=== PATIENT | female | born 1975 | race Caucasian/White ===

== ENCOUNTER 2022-02-17 08:19 | Outpatient (REF) | payer OTHER, SELFPAY ==
--- NOTE | ~2022-02-17 | MM_ITS ---
EXAMINATION: MM SCREENING DIGITAL BREAST TOMOSYNTHESIS, BILATERAL CLINICAL INFORMATION: Screening. Asymptomatic. The lifetime risk of breast cancer based on the Tyrer-Cuzick Model is 12%. COMPARISON: Mammography: 12/18/2019, 05/12/2018, 11/09/2017 TECHNIQUE: Digital breast tomosynthesis is performed in both the craniocaudal and mediolateral oblique views along with computer-aided detection (CAD). Synthesized 2D images are generated from the tomosynthesis. FINDINGS: There are scattered areas of fibroglandular density (ACR BI-RADS breast composition Category b). Breast tissue composition borders on predominantly fatty. There are no significant masses, abnormal calcifications, or other abnormalities. There is no developing density or architectural abnormality. The axilla and skin contours are unremarkable. There are no significant changes. MM/MM tomosynthesis screening BI IMPRESSION: No mammographic evidence of malignancy. ASSESSMENT: BI-RADS 1: Negative RECOMMENDATION: Routine annual mammography screening. This patient's information was entered into a reminder system with a target due date for their next mammogram.
== END 2022-02-17 08:20 | disposition home or self-care (01) ==
LOC: HO.MAMMO 08:19
PROVIDERS: PCP Internal Medicine; Visit Provider Internal Medicine
DX: Z12.31 Encounter for screening mammogram for malignant neoplasm of breast (principal)
CPT/HCPCS: 77063; 77067

== ENCOUNTER 2022-08-13 10:53 | Outpatient (REF) | payer OTHER, SELFPAY ==
--- NOTE | ~2022-08-13 | XR_ITS ---
EXAMINATION: XR CHEST CLINICAL INFORMATION: Cough COMPARISON: None TECHNIQUE: 2 views of the chest were obtained. FINDINGS: No significant abnormality is noted involving the heart, lungs, mediastinum, bony thorax or soft tissues. XR/XR chest 2V IMPRESSION: Unremarkable examination.
[2022-08-13 15:59] LABS: Influenza A PCR NEGATIVE (Negative); Influenza B PCR NEGATIVE (Negative); Resp Syncy Virus RNA Qual PCR NEGATIVE (Negative); SARS COV2 PCR INHOUSE NEGATIVE (Negative)
== END 2022-08-13 10:54 | disposition home or self-care (01) ==
LOC: HO.HMGCX 10:53
PROVIDERS: Visit Provider Physician Assistant Medical
DX: Z20.822 Contact with and (suspected) exposure to COVID-19 (principal); R05.9 Cough, unspecified
CPT/HCPCS: 0241U; 71046

== ENCOUNTER 2023-02-24 08:11 | Outpatient (REF) | payer OTHER, SELFPAY ==
--- NOTE | ~2023-02-24 | MM_ITS ---
EXAMINATION: MM SCREENING DIGITAL BREAST TOMOSYNTHESIS, BILATERAL CLINICAL INFORMATION: Screening. Asymptomatic. The lifetime risk of breast cancer based on the Tyrer-Cuzick Model is 13%. COMPARISON: Mammography: 02/17/2022, 12/18/2019, 05/12/2018, 11/09/2017, 10/23/2017 TECHNIQUE: Digital breast tomosynthesis is performed in both the craniocaudal and mediolateral oblique views along with computer-aided detection (CAD). Synthesized 2D images are generated from the tomosynthesis. FINDINGS: There are scattered areas of fibroglandular density (ACR BI-RADS breast composition Category b). There are no significant masses, abnormal calcifications, or other abnormalities. Parenchymal pattern is similar to prior studies. There is no developing density or architectural abnormality. The axilla and skin contours are unremarkable. No significant changes. MM/MM tomosynthesis screening BI IMPRESSION: No mammographic evidence of malignancy. ASSESSMENT: BI-RADS 1: Negative RECOMMENDATION: Routine annual mammography screening. This patient's information was entered into a reminder system with a target due date for their next mammogram.
== END 2023-02-24 08:12 | disposition home or self-care (01) ==
LOC: HO.MAMMO 08:11
PROVIDERS: PCP Internal Medicine; Visit Provider Internal Medicine
DX: Z12.31 Encounter for screening mammogram for malignant neoplasm of breast (principal)
CPT/HCPCS: 77063; 77067

== ENCOUNTER 2024-02-28 08:09 | Outpatient (REF) | payer OTHER, SELFPAY | END 2024-02-28 08:10 | disposition home or self-care (01) | LOC: HO.MAMMO 08:09 | PROVIDERS: PCP Internal Medicine; Visit Provider Internal Medicine | DX: Z12.31 Encounter for screening mammogram for malignant neoplasm of breast (principal) | CPT/HCPCS: 77063; 77067 ==

== ENCOUNTER → 2024-02-28 08:15 | Outpatient (BNV) | payer OTHER, SELFPAY | PROVIDERS: PCP Internal Medicine; Visit Provider Radiology Diagnostic Radiology | DX: Z12.31 Encounter for screening mammogram for malignant neoplasm of breast (principal) | CPT/HCPCS: 77063; 77067 ==

== ENCOUNTER 2025-03-05 08:06 | Outpatient (REF) | payer OTHER, SELFPAY ==
--- OUTSIDE RECORDS SUMMARY | 2025-03-05 08:28 | XMS_ITS | Patient Health Record ---
Author Organization [facility] Address [address] [place] [address] Care Team Providers Care Nurse Coordinator Name Role Phone Winter Christie Unavailable [phone] Allergies Allergen (clinical drug ingredient) Drug/Non Drug Allergy documented on EMR Reaction Allergy Type Onset Date Status Penicillin stomach upset Drug Allergy Ac tive Reason For Referral No Information Medications Medication SIG (Take, Route, Frequency, Duration) Notes Start Date End Date Status Omeprazole 20 MG 1 capsule 30 minutes before morning meal Orally Once a day for 30 day(s) Active Gabapentin Not-Takin g Hydroxychloroquine Sulfate Not-Taking Mounjaro 5 MG/0.5ML as directed Subcutaneous Active LamISIL 250 MG 1 tablet Orally Once a day for 30 days Active Social History Tobacco Use: Social History Observation Description Date Details (start date - stop date) Current Smoker NA - NA Tobacco Use/Smoking Question Answer Notes Are you a: current smoker Alcohol Screen Question Answer Notes Did you have a drink contain ing alcohol in the past year? Yes How often did you have a dri nk containing alcohol in the past year? 2 to 3 times a week (3 points) Points 3 Interpretation Positive Tobacco use other than smoking: Question Answer Notes Are you an other tobacco user? No Plan Of Treatment Pending Test Test Name Order Date *Liver Function Test (LFT) 07/22/2022 *Liver Function Test (LFT) 09/23/2022 Insurance Providers Payer Name Payer Address Payer Phone Subscriber Number Group Number Insured Name Patient Relationship to Insured Coverage Start Date Coverage End Date [facility] [address] [place], [place] [id number] [place] [address] [id number] Yenny John Self - patient is the insured Medical (General) History Medical History History ICD Code Arthritis covid-19 Fibromyalgia Reflux ( GERD) Chicken pox Surgical History Surgery Date(Month/Year) x2 08/2003,09/1998 kidney surgery- Stent 02/2019
--- OUTSIDE RECORDS SUMMARY | 2025-03-05 08:28 | XMS_ITS | Patient Health Record ---
Author Organization [facility] Address [address] [place] [id number] Care Team Providers Care Electrician Maintenance Name Role Phone AARTI LEE Unavailable [phone] ALLERGIES Allergen (clinical drug ingredient) Drug/Non Drug Allergy documented on EMR Reaction Allergy Type Onset Date Status Penicillin stomach upset Drug Allergy Ac tive RESULTS Component Value Reference Range Notes URINALYSIS Reviewed date:08/07/2024 04:42:45 PM Interpretation: Performing Lab: Notes/Report: Note Original Ordering Provider: AARTI LEE NP [employer], a member of [address] [address] Parish Nurse - Brigitte Concepcion MD GLUCOSE, (UA) NEGATIVE NEGATIVE mg/dL BILIRUBIN, URINE NEGATIVE NEGATIVE KETONE, URINE NEGATIVE NEGATIVE mg/dL SPECIFIC GRAVITY, URINE 1.013 1.003-1.030 BLOOD, URINE NEGATIVE NEGATIVE PH, URINE 7.5 5.0-8.0 PROTEIN, URINE NEGATIVE <= TRACE mg/dl UROBILINOGEN, URINE 1.0 0.2-1.0 E.U./dL NITRITE, URINE NEGATIVE NEGATIVE LEUKOCYTE ESTERASE, URINE NEGATIVE NEGATIVE Note Original Ordering Provider: AARTI LEE NP [employer], a member of [address] [address] Parish Nurse - Brigitte Concepcion MD GLYCOHEMOGLOBIN PROFILE Reviewed date:08/08/2024 07:46:23 AM Interpretation: Performing Lab: Notes/Report: GLYCATED HEMOGLOBIN A1C 4.9 <6.5 % ESTIMATED AVERAGE GLUCOSE 94 COMPREHENSIVE METABOLIC PANE L Reviewed date:08/07/2024 04:42:45 PM Interpretation: Performing Lab: Notes/Report: Note Original Orderi ng Provider: AARTI LEE NP GLUCOSE 103 70-100 mg/dL Reference range applicable to fasting specimens only BUN 14 5-25 mg/dL CREAT 0.96 0.5-1.1 mg/dL GLOMERULAR FILTRATION RATE 72 >60 This eGFR result was calculated using the CKD-EPI 2020 Creatinine Equation SODIUM 142 135-145 mEq/L POTASSIUM 3.9 3.5-5.5 mmol/L CHLORIDE 109 96-110 mmol/L CO2 30 21-32 mmol/L ANION GAP 3 3-11 CALCIUM 9.6 8.5-10.5 mg/dL TOTAL PROTEIN 6.5 6.0-8.0 G/dL ALBUMIN 3.9 3.2-5.0 G/dL BILI,TOTAL 0.5 0.0-1.4 mg/dL SGOT 15 10-42 U/L SGPT 23 10-60 U/L ALK PHOS 80 42-121 U/L CBC WITH AUTO DIFF Reviewed date:08/07/2024 03:04:21 PM Interpretation: Performing Lab: Notes/Report: WBC 6.5 4.8-10.8 x10-3/uL RBC 4.2 3.8-4.8 x10-6/uL HEMOGLOBIN 13.0 11.5-16.0 g/dL HEMATOCRIT 39.4 35-47 % MCV 93.6 79-98 fL MCH 30.9 27-32 pg MCHC 33.0 32-37 g/dL RDW 12.2 11-15 % PLT COUNT 250 130-400 x10-3/uL MEAN PLATELET VOLUME 10.5 7-11 fL NRBC % AUTO 0.0 <1 % NEUT % 57.6 LYMPH % 31.8 MONO % 5.5 EOS % 4.0 BASO % 0.8 IMMATURE GRANULOCYTES % 0.3 NRBC # AUTO 0.00 <0.1 x10-3/uL ABSOLUTE NEUT 3.75 1.5-7.0 x10-3/uL LYMPH # 2.07 1-5.0 x10-3/uL MONO # 0.36 0.2-1.0 x10-3/uL EOS # 0.26 0-0.5 x10-3/uL BASO # 0.05 0-0.2 x10-3/uL IMMATURE GRANULOCYTES # 0.02 0-0.03 x10-3/uL LIPID PROFILE Reviewed date:08/07/2024 04:42:45 PM Interpretation: Performing Lab: Notes/Report: CHOLESTEROL 145 0-200 mg/dL TRIGLYCERIDES 136 0-150 mg/dL VITAMIN D, 25-HYDROXY Reviewed date:08/07/2024 04:42:45 PM Interpretation: Performing Lab: Notes/Report: VITAMIN D, 25-HYDROXY 33 30-80 ng/mL TSH Reviewed date:08/07/2024 04:42:45 PM Interpretation: Performing Lab: Notes/Report: TSH 0.92 0.40-4.00 uIU/ml REASON FOR REFERRAL No Information MEDICATIONS Medication SIG (Take, Route, Frequency, Duration) Notes Start Date End Date Status Omeprazole 20 MG 1 capsule 30 minutes before morning meal Orally Once a day Active Hydroxychloroquine Sulfate 100 MG as directed Orally Active Humira Active Mounjaro 10 MG/0.5ML 10mg Subcutaneous weekly for 30 days Active Mounjaro 12.5 MG/0.5ML 12.5mg Subcutaneous weekly for 30 days every other week Not-Taking Zepbound 2.5 MG/0.5ML inject 2.5mg Subcutaneous weekly for 30 days 11/29/2024 Not-Taking CeleBREX 200 MG 1 capsule with food Orally Once a day Not-Taking Ondansetron 4 MG 1 tablet on the tongue and allow to dissolve prn nausea/vomiting Orally twice day for 30 days Active zepbound 10mg inject 10mg Subcutaneous weekly for 30 days 01/17/2025 Active Zepbound 10 MG/0.5ML 10mg Subcutaneous weekly for 30 days 02/15/2024 Not-Taking SOCIAL HISTORY Tobacco Use: Social History Observation Description Date Details (start date - stop date) Current Smoker NA - NA Sex Assigned At : Social History Observation Description Sex Assigned At Unknown Tobacco Use/Smoking Question Answer Notes Are you a current smoker Alcohol Screen (Audit-C) Question Answer Notes Did you have a drink contain ing alcohol in the past year? Yes How often did you have a dri nk containing alcohol in the past year? 2 to 3 times a week (3 points) Points 3 Interpretation Positive Section Notes: started smoing at the age of 15-16 about 1 pckt a day and quit in 2011 started smoking again 2020 smoking about 1 pck a day started smoing at the age of 15-16 about 1 pckt a day and quit in 2011 started smoking again 2020 smoking about 1 pck a day started smoing at the age of 15-16 about 1 pckt a day and quit in 2011 started smoking again 2020 smoking about 1 pck a day started smoing at the age of 15-16 about 1 pckt a day and quit in 2011 started smoking again 2020 smoking about 1 pck a day started smoing at the age of 15-16 about 1 pckt a day and quit in 2011 started smoking again 2020 smoking about 1 pck a day started smoing at the age of 15-16 about 1 pckt a day and quit in 2011 started smoking again 2020 smoking about 1 pck a day started smoing at the age of 15-16 about 1 pckt a day and quit in 2011 started smoking again 2020 smoking about 1 pck a day started smoing at the age of 15-16 about 1 pckt a day and quit in 2011 started smoking again 2020 smoking about 1 pck a day started smoing at the age of 15-16 about 1 pckt a day and quit in 2011 started smoking again 2020 smoking about 1 pck a day started smoing at the age of 15-16 about 1 pckt a day and quit in 2011 started smoking again 2020 smoking about 1 pck a day started smoing at the age of 15-16 about 1 pckt a day and quit in 2011 started smoking again 2020 smoking about 1 pck a day started smoing at the age of 15-16 about 1 pckt a day and quit in 2011 started smoking again 2020 smoking about 1 pck a day started smoing at the age of 15-16 about 1 pckt a day and quit in 2011 started smoking again 2020 smoking about 1 pck a day started smoing at the age of 15-16 about 1 pckt a day and quit in 2011 started smoking again 2020 smoking about 1 pck a day started smoing at the age of 15-16 about 1 pckt a day and quit in 2011 started smoking again 2020 smoking about 1 pck a day started smoing at the age of 15-16 about 1 pckt a day and quit in 2011 started smoking again 2020 smoking about 1 pck a day started smoing at the age of 15-16 about 1 pckt a day and quit in 2011 started smoking again 2020 smoking about 1 pck a day started smoing at the age of 15-16 about 1 pckt a day and quit in 2011 started smoking again 2020 smoking about 1 pck a day PROBLEMS Problem Type ICD Code Onset Dates Problem Status W/U Status Risk SNOMED Code Notes Problem Vitamin D deficiency, unspecified (E55.9) Active confirmed 01783041 Problem Other obesity due to excess calories (E66.09) Active confirmed 540106439 Problem Encounter for general adult medical examination without abnormal findings (Z00.00) Active confirmed 925179742 Problem Encounter for screening for diabetes mellitus (Z13.1) Active confirmed 429206167 Problem Encounter for screening for lipoid disorders (Z13.220) Active confirmed 151599382 Problem Encounter for screening for other suspected endocrine disorder (Z13.29) Active confirmed 551249820 Problem Prediabetes (R73.03) Active confirmed Prediabetes (990261077) Problem Hypothyroidism, unspecified type (E03.9) Active confirmed Hypothyroidism (98707195) Problem Body mass index [BMI] 36.0-36.9, adult (Z68.36) Active confirmed 755495590 Problem BMI 33.0-33.9,adult (Z68.33) Active confirmed 716343740 Problem Hyperinsulinemia (E16.1) Active confirmed 46991614 Problem BMI 31.0-31.9,adult (Z68.31) Active confirmed 780998488 Problem BMI 30.0-30.9,adult (Z68.30) Active confirmed 046150781 Problem Rheumatoid arthritis with positive rheumatoid factor, involving unspecified site (M05.9) Active confirmed 959662802 VITAL SIGNS Heart Rate 98 /min 01/17/2025 Blood pressure diastolic 76 mm Hg 01/17/2025 Oximetry 99 % 01/17/2025 Height 65 in 01/17/2025 Blood pressure systolic 108 mm Hg 01/17/2025 Weight 133 lbs 01/17/2025 BMI 22.13 kg/m2 01/17/2025 Encounters Encounter Location Date Provider Diagnosis [facility] [address] [facility] [address] [place] [address] 03/30/2024 AARTI LEE Rheumatoid arthritis with positive rheumatoid factor, involving unspecified site M05.9 ; Prediabetes R73.03 ; Hyperinsulinemia E16.1 and BMI 22.0-22.9, adult Z68.22 [place] [address] 05/22/2024 AARTI LEE Rheumatoid arthritis with positive rheumatoid factor, involving unspecified site M05.9 ; Prediabetes R73.03 ; Hyperinsulinemia E16.1 and BMI 22.0-22.9, adult Z68.22 [place] [address] 08/07/2024 AATRI SHULTZHOT Rheumatoid arthritis with positive rheumatoid factor, involving unspecified site M05.9 ; Prediabetes R73.03 ; Hyperinsulinemia E16.1 and BMI 22.0-22.9, adult Z68.22 [place] [address] 10/03/2024 AARTI BABCOCKT Rheumatoid arthritis with positive rheumatoid factor, involving unspecified site M05.9 ; Prediabetes R73.03 ; Hyperinsulinemia E16.1 and BMI 22.0-22.9, adult Z68.22 [place] [address] 11/29/2024 AARTI LEE Rheumatoid arthritis with positive rheumatoid factor, involving unspecified site M05.9 ; Prediabetes R73.03 ; Hyperinsulinemia E16.1 and BMI 21.0-21.9, adult Z68.21 [place] [address] 01/17/2025 AARTI LEE Rheumatoid arthritis with positive rheumatoid factor, involving unspecified site M05.9 ; BMI 22.0-22.9, adult Z68.22 ; Prediabetes R73.03 and Hyperinsulinemia E16.1 [facility] [address] [place] [id number] 01/17/2025 AARTI LEE ASSESSMENTS Encounter Date Diagnosis Assessment Notes Treatment Notes Treatment Clinical Notes Section Notes 03/30/2024 Rheumatoid arthritis with positive rheumatoid factor, involving unspecified site (ICD-10 - M05.9) #Weight Management 03/30/2024 _update labs WIll continue 10-mg mounjaro- discussed maintanence dosing Every other week For now We will try for zbound, Patient is amendable to paying [id number] given the benefits of the drug Tolerating overall well. SECA scale reviewed prior, skeletal muscle mass within normal limits. discussed importance of protein consumption for muscle maintenance, strength and resistance training as well as probiotics, B12 complex biotin , iron and other nutrients, To also help avoid telogen effluvium while on weight loss medications such as GLP-1 Follow up in 6 weeks. Total time spent today was 30 minutes of which greater than 50% was spent on coordinating and counseling Patient has been found to be normal with a BMI of (22). We are a board certified obesity and weight management practice Patient has trialed behavioral modification, dietary restrictions and exercise for a minimum of 6 months The most recent [place] [employer] of clinical endocrinologists and [employer]in[employer] guidelines recommend patients who have overweight BMI or obesity BMI, who also have metabolic syndrome, prediabetes, or at risk of developing type 2 diabetes should aim for a weight loss goal of at least 10% of the baseline body weight Patient counseled regarding effects of GLP/GIP-1 agonists, and other FDA approved wgt loss meds with regards to a multifactorial approach of weight loss as mentioned above and not solely appetite suppression. We have discussed the mechanism of GLP-1's/GIP, dual incretins, appetitite suppressants I think this would be fantastic option for her given her metabolic workup and body composition We have discussed the risks and benefits and side effects including/and not limited to Sarcopenia, intestinal obstruction, constipation, nausea, lethargy, headache Discussed importance of protein consumption for muscle maintenance as well as strength and resistance training ,probiotics, B12 complex biotin , iron and other nutrients, To help avoid telogen effluvium We have discussed the lifelong requirement of nutritional supplementation And adherence to an exercise regimen as well as importance of follow-up The patient understands and agrees There is no history of medullary thyroid cancer or multiple endocrine neoplasia There is also no history of cardiovascular disease, hypertension, palpitations, or arrhythmias In the setting of potential stimulant/amphetam ine use such as phentermine We have also discussed risks and benefits, and the use of compounded medications to help offset the national shortages as well as financial implications vs trade name drugs Patient was reassured and welcomed to the practice. We discussed that we stress a hollistic medical approach with emphasis on lifestyle modification. Patient was informed that a healthy lifestyle with exercise and good eating habits can help reduce his risk of medical complications. He is explained that obesity increases his risk of diabetes, cardiovascular disease, or organ damage. We spent a lot of time discussing the relationship between food, exercise, sleep, mental health and obesity. Patient was counseled on the importance EATING local, organic food when possible. Patient was educated on clean 15 and dirty dozen. I provided information about reading books called The Food Rules by Chip Wang and Eat Fat Get Lean by Dr Stan Conner. Self education is important in the journey for weight management. Patient was offered diagnostic testing. We want to measure visceral adiposity, advanced body composition, adverse lipids, fatty acid balance, risk for heart disease and atherosclerosis, markers of inflammation and genetic susceptibility. Patient was counseled on weight management and was advised to lose weight using A. Meal Replacement Products We discussed the lifelong requirement of nutritional supplementation and adherence to an exercise regimen as well as importance of dietary follow-up Patient was educated on the replacement products called optifast. This is a good way of taking fixed amount of calories. It has been shown in studies to be ineffective weight management tool. We also recommend maintaining adequate protein intake and muscle composition, 1.5mg/kg This however has to be coupled with lifestyle intervention as well as laboratory data and EKG monitoring. It is impossible to know how a person will tolerate complete meal replacement. The side effects of meal replacement and weight loss could include syncopal attacks, dizziness, gallstones, potential cholecystectomy, possible heart attack and even . The benefits of meal replacement would be potential weight loss but no guarantees can be made. Meal replacement products are not covered by insurance. Once the patient has bought these products we cannot return them B. Lifestyle management which includes several strategies as below 1. Eat a low carbohydrate good fat good protein diet. Eliminate refined carbohydrates from the diet. Continue blood sugar and sugared beverages. Eat local organic when possible. Cook your own meals. Read food labels. None about healthy snacks. Portion control and food with low glycemic index 2. Exercise regularly. Try to get at least 6000 steps a day. Use a predominant to track activity level. Consider using apps like [employer], myfitnesspal, lose it, stick as needed for self-monitoring and weight management. Consider group exercises. Consider hiring a personal driver. Regular exercise is cespedes to sustainable health and prevents as a buffer against weight regain 3. Sleep is most important for healing. Tried to sleep at least 8 hours a night. A good quality sleep needs a sleep ritual with ideal room temperature of around 68. It might help to take a shower and have no electronics in the room and sleep in a very dark room without artificial light. Start her sleep routine and get up early in the morning and go to bed on time 4. Make a social connection. Surround yourself with positive people with positive energy. Connect with friends and family. 5. Get into the habit of meditating and mindfulness while doing everything. 6. Go outside and connect with nature. C. Prescription medications Patient was educated on the use of prescription medications for medical weight loss. This is a growing list and includes phentermine, Topamax,Qsymia, contrave, belviq and saxenda. All prescription medications could have side effects including but not limited to kidney stones, seizure disorder cardiac arrhythmias heart attack pancreatitis etc. etc.. Patient was encouraged to read the prescription insert and have coaching with their pharmacist and make an informed decision about taking medication and know that these medications are being prescribed with good intentions and we do not know how a patient would react to her medication. Sudden medications are FDA approved for weight loss and there is also off label use depending on patient's inability to afford medications in an attempt to lose weight D. Behavioral counseling was done to establish a relationship between food and an mood. Patient was provided information about local counseling and psychiatry and Dr Skelton at [facility]. We would like to cover regular topics and build on low glycemic eating exercise mindful eating, using yoga and meditation along with deep breathing and connecting with friends and family. E. MASS PAT reviewed, Patient's current medications were reviewed and opinion was given on medication that can cause weight gain and can be substituted F. Patient was assessed for risk with obesity including and not limiting to atherosclerosis heart disease stroke kidney disease, restrictive lung disease, irritable bowel syndrome and overall mortality. Risk of developing prediabetes diabetes and metabolic syndrome was discussed G. Therapeutic plan: We have decided to make therapeutic plan which would include choosing wisely on calories restricting portion getting active, tracking weight, getting good quality sleep and working on time management H. Patient will follow up in (4) weeks for weight management Of note, some information is being carried forward from prior records for informational purposes only and is being cited so that efficiency, safety and quality of the patient's care is not compromised This note was prepared using voice recognition software and direct typing Please excuse inadvertent power plant inspector or typing errors, or uncorrected word substitutions Although every attempt has been made by the provider to proofread this document, occasional misspellings and typographical errors may still be present Due to the previous pandemic, and the use of personal protective equipment (PPE) This may decrease voice recognition accuracy Inadvertent power plant inspector errors may occur 05/22/2024 Rheumatoid arthritis with positive rheumatoid factor, involving unspecified site (ICD-10 - M05.9) #Weight Management 05/22/2024 _update labs WIll continue 10-mg mounjaro- discussed maintanence dosing Every other week For now We will try for zbound, Patient is amendable to paying [id number] given the benefits of the drug Tolerating overall well. SECA scale reviewed prior, skeletal muscle mass within normal limits. discussed importance of protein consumption for muscle maintenance, strength and resistance training as well as probiotics, B12 complex biotin , iron and other nutrients, To also help avoid telogen effluvium while on weight loss medications such as GLP-1 Follow up in 6 weeks. Total time spent today was 30 minutes of which greater than 50% was spent on coordinating and counseling Patient has been found to be normal with a BMI of (22). We are a board certified obesity and weight management practice Patient has trialed behavioral modification, dietary restrictions and exercise for a minimum of 6 months The most recent [place] [employer] of clinical endocrinologists and [employer] endocrin[employer] guidelines recommend patients who have overweight BMI or obesity BMI, who also have metabolic syndrome, prediabetes, or at risk of developing type 2 diabetes should aim for a weight loss goal of at least 10% of the baseline body weight Patient counseled regarding effects of GLP/GIP-1 agonists, and other FDA approved wgt loss meds with regards to a multifactorial approach of weight loss as mentioned above and not solely appetite suppression. We have discussed the mechanism of GLP-1's/GIP, dual incretins, appetitite suppressants I think this would be fantastic option for her given her metabolic workup and body composition We have discussed the risks and benefits and side effects including/and not limited to Sarcopenia, intestinal obstruction, constipation, nausea, lethargy, headache Discussed importance of protein consumption for muscle maintenance as well as strength and resistance training ,probiotics, B12 complex biotin , iron and other nutrients, To help avoid telogen effluvium We have discussed the lifelong requirement of nutritional supplementation And adherence to an exercise regimen as well as importance of follow-up The patient understands and agrees There is no history of medullary thyroid cancer or multiple endocrine neoplasia There is also no history of cardiovascular disease, hypertension, palpitations, or arrhythmias In the setting of potential stimulant/amphetam ine use such as phentermine We have also discussed risks and benefits, and the use of compounded medications to help offset the national shortages as well as financial implications vs trade name drugs Patient was reassured and welcomed to the practice. We discussed that we stress a hollistic medical approach with emphasis on lifestyle modification. Patient was informed that a healthy lifestyle with exercise and good eating habits can help reduce his risk of medical complications. He is explained that obesity increases his risk of diabetes, cardiovascular disease, or organ damage. We spent a lot of time discussing the relationship between food, exercise, sleep, mental health and obesity. Patient was counseled on the importance EATING local, organic food when possible. Patient was educated on clean 15 and dirty dozen. I provided information about reading books called The Food Rules by Chip Wang and Eat Fat Get Lean by Dr Stan Conner. Self education is important in the journey for weight management. Patient was offered diagnostic testing. We want to measure visceral adiposity, advanced body composition, adverse lipids, fatty acid balance, risk for heart disease and atherosclerosis, markers of inflammation and genetic susceptibility. Patient was counseled on weight management and was advised to lose weight using A. Meal Replacement Products We discussed the lifelong requirement of nutritional supplementation and adherence to an exercise regimen as well as importance of dietary follow-up Patient was educated on the replacement products called optifast. This is a good way of taking fixed amount of calories. It has been shown in studies to be ineffective weight management tool. We also recommend maintaining adequate protein intake and muscle composition, 1.5mg/kg This however has to be coupled with lifestyle intervention as well as laboratory data and EKG monitoring. It is impossible to know how a person will tolerate complete meal replacement. The side effects of meal replacement and weight loss could include syncopal attacks, dizziness, gallstones, potential cholecystectomy, possible heart attack and even . The benefits of meal replacement would be potential weight loss but no guarantees can be made. Meal replacement products are not covered by insurance. Once the patient has bought these products we cannot return them B. Lifestyle management which includes several strategies as below 1. Eat a low carbohydrate good fat good protein diet. Eliminate refined carbohydrates from the diet. Continue blood sugar and sugared beverages. Eat local organic when possible. Cook your own meals. Read food labels. None about healthy snacks. Portion control and food with low glycemic index 2. Exercise regularly. Try to get at least 6000 steps a day. Use a predominant to track activity level. Consider using apps like [employer], Mobile [employer] the [employer], lose it, stick as needed for self-monitoring and weight management. Consider group exercises. Consider hiring a personal driver. Regular exercise is cespedes to sustainable health and prevents as a buffer against weight regain 3. Sleep is most important for healing. Tried to sleep at least 8 hours a night. A good quality sleep needs a sleep ritual with ideal room temperature of around 68. It might help to take a shower and have no electronics in the room and sleep in a very dark room without artificial light. Start her sleep routine and get up early in the morning and go to bed on time 4. Make a social connection. Surround yourself with positive people with positive energy. Connect with friends and family. 5. Get into the habit of meditating and mindfulness while doing everything. 6. Go outside and connect with nature. C. Prescription medications Patient was educated on the use of prescription medications for medical weight loss. This is a growing list and includes phentermine, Topamax,Qsymia, contrave, belviq and saxenda. All prescription medications could have side effects including but not limited to kidney stones, seizure disorder cardiac arrhythmias heart attack pancreatitis etc. etc.. Patient was encouraged to read the prescription insert and have coaching with their pharmacist and make an informed decision about taking medication and know that these medications are being prescribed with good intentions and we do not know how a patient would react to her medication. Sudden medications are FDA approved for weight loss and there is also off label use depending on patient's inability to afford medications in an attempt to lose weight D. Behavioral counseling was done to establish a relationship between food and an mood. Patient was provided information about local counseling and psychiatry and Dr Skelton at [facility]. We would like to cover regular topics and build on low glycemic eating exercise mindful eating, using yoga and meditation along with deep breathing and connecting with friends and family. E. MASS PAT reviewed, Patient's current medications were reviewed and opinion was given on medication that can cause weight gain and can be substituted F. Patient was assessed for risk with obesity including and not limiting to atherosclerosis heart disease stroke kidney disease, restrictive lung disease, irritable bowel syndrome and overall mortality. Risk of developing prediabetes diabetes and metabolic syndrome was discussed G. Therapeutic plan: We have decided to make therapeutic plan which would include choosing wisely on calories restricting portion getting active, tracking weight, getting good quality sleep and working on time management H. Patient will follow up in (4) weeks for weight management Of note, some information is being carried forward from prior records for informational purposes only and is being cited so that efficiency, safety and quality of the patient's care is not compromised This note was prepared using voice recognition software and direct typing Please excuse inadvertent power plant inspector or typing errors, or uncorrected word substitutions Although every attempt has been made by the provider to proofread this document, occasional misspellings and typographical errors may still be present Due to the previous pandemic, and the use of personal protective equipment (PPE) This may decrease voice recognition accuracy Inadvertent power plant inspector errors may occur 08/07/2024 Rheumatoid arthritis with positive rheumatoid factor, involving unspecified site (ICD-10 - M05.9) #Weight Management 08/07/2024 To get updated labs after today's visit Discussed body composition scale findings down fat mass and slightly up on muscle mass Low normal muscle mass discussed proper protein and strength and resistance training WIll continue 10-mg mounjaro- discussed maintanence dosing We will try for zbound, Patient is amendable to paying [id number] given the benefits of the drug Tolerating overall well. SECA scale reviewed prior, skeletal muscle mass within normal limits. discussed importance of protein consumption for muscle maintenance, strength and resistance training as well as probiotics, B12 complex biotin , iron and other nutrients, To also help avoid telogen effluvium while on weight loss medications such as GLP-1 Total time spent today was 30 minutes of which greater than 50% was spent on coordinating and counseling Patient has been found to be normal with a BMI of (22). We are a board certified obesity and weight management practice Patient has trialed behavioral modification, dietary restrictions and exercise for a minimum of 6 months The most recent [place] [employer] of clinical endocrinologists and [place] [employer]in[employer] guidelines recommend patients who have overweight BMI or obesity BMI, who also have metabolic syndrome, prediabetes, or at risk of developing type 2 diabetes should aim for a weight loss goal of at least 10% of the baseline body weight Patient counseled regarding effects of GLP/GIP-1 agonists, and other FDA approved wgt loss meds with regards to a multifactorial approach of weight loss as mentioned above and not solely appetite suppression. We have discussed the mechanism of GLP-1's/GIP, dual incretins, appetitite suppressants I think this would be fantastic option for her given her metabolic workup and body composition We have discussed the risks and benefits and side effects including/and not limited to Sarcopenia, intestinal obstruction, constipation, nausea, lethargy, headache Discussed importance of protein consumption for muscle maintenance as well as strength and resistance training ,probiotics, B12 complex biotin , iron and other nutrients, To help avoid telogen effluvium We have discussed the lifelong requirement of nutritional supplementation And adherence to an exercise regimen as well as importance of follow-up The patient understands and agrees There is no history of medullary thyroid cancer or multiple endocrine neoplasia There is also no history of cardiovascular disease, hypertension, palpitations, or arrhythmias In the setting of potential stimulant/amphetam ine use such as phentermine We have also discussed risks and benefits, and the use of compounded medications to help offset the national shortages as well as financial implications vs trade name drugs Patient was reassured and welcomed to the practice. We discussed that we stress a hollistic medical approach with emphasis on lifestyle modification. Patient was informed that a healthy lifestyle with exercise and good eating habits can help reduce his risk of medical complications. He is explained that obesity increases his risk of diabetes, cardiovascular disease, or organ damage. We spent a lot of time discussing the relationship between food, exercise, sleep, mental health and obesity. Patient was counseled on the importance EATING local, organic food when possible. Patient was educated on clean 15 and dirty dozen. I provided information about reading books called The Food Rules by Chip Wang and Eat Fat Get Lean by Dr Stan Conner. Self education is important in the journey for weight management. Patient was offered diagnostic testing. We want to measure visceral adiposity, advanced body composition, adverse lipids, fatty acid balance, risk for heart disease and atherosclerosis, markers of inflammation and genetic susceptibility. Patient was counseled on weight management and was advised to lose weight using A. Meal Replacement Products We discussed the lifelong requirement of nutritional supplementation and adherence to an exercise regimen as well as importance of dietary follow-up Patient was educated on the replacement products called optifast. This is a good way of taking fixed amount of calories. It has been shown in studies to be ineffective weight management tool. We also recommend maintaining adequate protein intake and muscle composition, 1.5mg/kg This however has to be coupled with lifestyle intervention as well as laboratory data and EKG monitoring. It is impossible to know how a person will tolerate complete meal replacement. The side effects of meal replacement and weight loss could include syncopal attacks, dizziness, gallstones, potential cholecystectomy, possible heart attack and even . The benefits of meal replacement would be potential weight loss but no guarantees can be made. Meal replacement products are not covered by insurance. Once the patient has bought these products we cannot return them B. Lifestyle management which includes several strategies as below 1. Eat a low carbohydrate good fat good protein diet. Eliminate refined carbohydrates from the diet. Continue blood sugar and sugared beverages. Eat local organic when possible. Cook your own meals. Read food labels. None about healthy snacks. Portion control and food with low glycemic index 2. Exercise regularly. Try to get at least 6000 steps a day. Use a predominant to track activity level. Consider using apps like [employer], [employer] the [employer], lose it, stick as needed for self-monitoring and weight management. Consider group exercises. Consider hiring a personal driver. Regular exercise is cespedes to sustainable health and prevents as a buffer against weight regain 3. Sleep is most important for healing. Tried to sleep at least 8 hours a night. A good quality sleep needs a sleep ritual with ideal room temperature of around 68. It might help to take a shower and have no electronics in the room and sleep in a very dark room without artificial light. Start her sleep routine and get up early in the morning and go to bed on time 4. Make a social connection. Surround yourself with positive people with positive energy. Connect with friends and family. 5. Get into the habit of meditating and mindfulness while doing everything. 6. Go outside and connect with nature. C. Prescription medications Patient was educated on the use of prescription medications for medical weight loss. This is a growing list and includes phentermine, Topamax,Qsymia, contrave, belviq and saxenda. All prescription medications could have side effects including but not limited to kidney stones, seizure disorder cardiac arrhythmias heart attack pancreatitis etc. etc.. Patient was encouraged to read the prescription insert and have coaching with their pharmacist and make an informed decision about taking medication and know that these medications are being prescribed with good intentions and we do not know how a patient would react to her medication. Sudden medications are FDA approved for weight loss and there is also off label use depending on patient's inability to afford medications in an attempt to lose weight D. Behavioral counseling was done to establish a relationship between food and an mood. Patient was provided information about local counseling and psychiatry and Dr Skelton at [facility]. We would like to cover regular topics and build on low glycemic eating exercise mindful eating, using yoga and meditation along with deep breathing and connecting with friends and family. E. MASS PAT reviewed, Patient's current medications were reviewed and opinion was given on medication that can cause weight gain and can be substituted F. Patient was assessed for risk with obesity including and not limiting to atherosclerosis heart disease stroke kidney disease, restrictive lung disease, irritable bowel syndrome and overall mortality. Risk of developing prediabetes diabetes and metabolic syndrome was discussed G. Therapeutic plan: We have decided to make therapeutic plan which would include choosing wisely on calories restricting portion getting active, tracking weight, getting good quality sleep and working on time management H. Patient will follow up in (4) weeks for weight management Of note, some information is being carried forward from prior records for informational purposes only and is being cited so that efficiency, safety and quality of the patient's care is not compromised This note was prepared using voice recognition software and direct typing Please excuse inadvertent power plant inspector or typing errors, or uncorrected word substitutions Although every attempt has been made by the provider to proofread this document, occasional misspellings and typographical errors may still be present Due to the previous pandemic, and the use of personal protective equipment (PPE) This may decrease voice recognition accuracy Inadvertent power plant inspector errors may occur 10/03/2024 Rheumatoid arthritis with positive rheumatoid factor, involving unspecified site (ICD-10 - M05.9) #Weight Management 10/03/2024 Labs reviewed Patient expresses interest in switching to us for primary care services Discussed body composition scale findings down fat mass and slightly up on muscle mass Low normal muscle mass discussed proper protein and strength and resistance training WIll continue 10-mg mounjaro- discussed maintanence dosing Every 2 weeks or so We will try for zbound, Patient is amendable to paying [id number] given the benefits of the drug Tolerating overall well. Total time spent today was 30 minutes of which greater than 50% was spent on coordinating and counseling Patient has been found to be normal with a BMI of (22). We are a board certified obesity and weight management practice Patient has trialed behavioral modification, dietary restrictions and exercise for a minimum of 6 months The most recent [place] [employer] of clinical endocrinologists and [place] [employer] end[employer]in[employer] guidelines recommend patients who have overweight BMI or obesity BMI, who also have metabolic syndrome, prediabetes, or at risk of developing type 2 diabetes should aim for a weight loss goal of at least 10% of the baseline body weight Patient counseled regarding effects of GLP/GIP-1 agonists, and other FDA approved wgt loss meds with regards to a multifactorial approach of weight loss as mentioned above and not solely appetite suppression. Of note, some information is being carried forward from prior records for informational purposes only and is being cited so that efficiency, safety and quality of the patient's care is not compromised This note was prepared using voice recognition software and direct typing Please excuse inadvertent power plant inspector or typing errors, or uncorrected word substitutions Although every attempt has been made by the provider to proofread this document, occasional misspellings and typographical errors may still be present Due to the previous pandemic, and the use of personal protective equipment (PPE) This may decrease voice recognition accuracy Inadvertent power plant inspector errors may occur 11/29/2024 Rheumatoid arthritis with positive rheumatoid factor, involving unspecified site (ICD-10 - M05.9) #Weight Management 11/29/2024 Labs reviewed Patient will be decreased to 2.5 mg dosing every 3 to 4 weeks for maintenance Discussed low normal muscle mass, proper protein and strength resistance training Proper caloric intake to avoid hypocalroia and muscle loss Total time spent today was 30 minutes of which greater than 50% was spent on coordinating and counseling Patient has been found to be normal with a BMI of (21). We are a board certified obesity and weight management practice Patient has trialed behavioral modification, dietary restrictions and exercise for a minimum of 6 months The most recent [place] [employer] of clinical endocrinologists and [employer] endocrin[employer] guidelines recommend patients who have overweight BMI or obesity BMI, who also have metabolic syndrome, prediabetes, or at risk of developing type 2 diabetes should aim for a weight loss goal of at least 10% of the baseline body weight Patient counseled regarding effects of GLP/GIP-1 agonists, and other FDA approved wgt loss meds with regards to a multifactorial approach of weight loss as mentioned above and not solely appetite suppression. Of note, some information is being carried forward from prior records for informational purposes only and is being cited so that efficiency, safety and quality of the patient's care is not compromised This note was prepared using voice recognition software and direct typing Please excuse inadvertent power plant inspector or typing errors, or uncorrected word substitutions Although every attempt has been made by the provider to proofread this document, occasional misspellings and typographical errors may still be present Due to the previous pandemic, and the use of personal protective equipment (PPE) This may decrease voice recognition accuracy Inadvertent power plant inspector errors may occur 01/17/2025 Rheumatoid arthritis with positive rheumatoid factor, involving unspecified site (ICD-10 - M05.9) #Weight Management 01/17/2025 Will send prescription to [facility] decr dosing every 3 to 4 weeks for maintenance Discussed low normal muscle mass, proper protein and strength resistance training Proper caloric intake to avoid hypocalroia and muscle loss Total time spent today was 30 minutes of which greater than 50% was spent on coordinating and counseling Patient has been found to be normal with a BMI of (22). We are a board certified obesity and weight management practice Of note, some information is being carried forward from prior records for informational purposes only and is being cited so that efficiency, safety and quality of the patient's care is not compromised This note was prepared using voice recognition software and direct typing Please excuse inadvertent power plant inspector or typing errors, or uncorrected word substitutions Although every attempt has been made by the provider to proofread this document, occasional misspellings and typographical errors may still be present Due to the previous pandemic, and the use of personal protective equipment (PPE) This may decrease voice recognition accuracy Inadvertent power plant inspector errors may occur 01/17/2025 BMI 22.0-22.9, adult (ICD-10 - Z68.22) #Weight Management 01/17/2025 Will send prescription to [facility] direct decr dosing every 3 to 4 weeks for maintenance Discussed low normal muscle mass, proper protein and strength resistance training Proper caloric intake to avoid hypocalroia and muscle loss Total time spent today was 30 minutes of which greater than 50% was spent on coordinating and counseling Patient has been found to be normal with a BMI of (22). We are a board certified obesity and weight management practice Of note, some information is being carried forward from prior records for informational purposes only and is being cited so that efficiency, safety and quality of the patient's care is not compromised This note was prepared using voice recognition software and direct typing Please excuse inadvertent power plant inspector or typing errors, or uncorrected word substitutions Although every attempt has been made by the provider to proofread this document, occasional misspellings and typographical errors may still be present Due to the previous pandemic, and the use of personal protective equipment (PPE) This may decrease voice recognition accuracy Inadvertent power plant inspector errors may occur 11/29/2024 Prediabetes (ICD-10 - R73.03) #Weight Management 11/29/2024 Labs reviewed Patient will be decreased to 2.5 mg dosing every 3 to 4 weeks for maintenance Discussed low normal muscle mass, proper protein and strength resistance training Proper caloric intake to avoid hypocalroia and muscle loss Total time spent today was 30 minutes of which greater than 50% was spent on coordinating and counseling Patient has been found to be normal with a BMI of (21). We are a board certified obesity and weight management practice Patient has trialed behavioral modification, dietary restrictions and exercise for a minimum of 6 months The most recent [place] [employer] of clinical endocrinologists and [place] [employer] end[employer]in[employer] guidelines recommend patients who have overweight BMI or obesity BMI, who also have metabolic syndrome, prediabetes, or at risk of developing type 2 diabetes should aim for a weight loss goal of at least 10% of the baseline body weight Patient counseled regarding effects of GLP/GIP-1 agonists, and other FDA approved wgt loss meds with regards to a multifactorial approach of weight loss as mentioned above and not solely appetite suppression. Of note, some information is being carried forward from prior records for informational purposes only and is being cited so that efficiency, safety and quality of the patient's care is not compromised This note was prepared using voice recognition software and direct typing Please excuse inadvertent power plant inspector or typing errors, or uncorrected word substitutions Although every attempt has been made by the provider to proofread this document, occasional misspellings and typographical errors may still be present Due to the previous pandemic, and the use of personal protective equipment (PPE) This may decrease voice recognition accuracy Inadvertent power plant inspector errors may occur 10/03/2024 Prediabetes (ICD-10 - R73.03) #Weight Management 10/03/2024 Labs reviewed Patient expresses interest in switching to us for primary care services Discussed body composition scale findings down fat mass and slightly up on muscle mass Low normal muscle mass discussed proper protein and strength and resistance training WIll continue 10-mg mounjaro- discussed maintanence dosing Every 2 weeks or so We will try for zbound, Patient is amendable to paying [id number] given the benefits of the drug Tolerating overall well. Total time spent today was 30 minutes of which greater than 50% was spent on coordinating and counseling Patient has been found to be normal with a BMI of (22). We are a board certified obesity and weight management practice Patient has trialed behavioral modification, dietary restrictions and exercise for a minimum of 6 months The most recent [place] [employer] of clinical endocrinologists and [place] [employer]in[employer] guidelines recommend patients who have overweight BMI or obesity BMI, who also have metabolic syndrome, prediabetes, or at risk of developing type 2 diabetes should aim for a weight loss goal of at least 10% of the baseline body weight Patient counseled regarding effects of GLP/GIP-1 agonists, and other FDA approved wgt loss meds with regards to a multifactorial approach of weight loss as mentioned above and not solely appetite suppression. Of note, some information is being carried forward from prior records for informational purposes only and is being cited so that efficiency, safety and quality of the patient's care is not compromised This note was prepared using voice recognition software and direct typing Please excuse inadvertent power plant inspector or typing errors, or uncorrected word substitutions Although every attempt has been made by the provider to proofread this document, occasional misspellings and typographical errors may still be present Due to the previous pandemic, and the use of personal protective equipment (PPE) This may decrease voice recognition accuracy Inadvertent power plant inspector errors may occur 08/07/2024 Prediabetes (ICD-10 - R73.03) #Weight Management 08/07/2024 To get updated labs after today's visit Discussed body composition scale findings down fat mass and slightly up on muscle mass Low normal muscle mass discussed proper protein and strength and resistance training WIll continue 10-mg mounjaro- discussed maintanence dosing We will try for zbound, Patient is amendable to paying [id number] given the benefits of the drug Tolerating overall well. SECA scale reviewed prior, skeletal muscle mass within normal limits. discussed importance of protein consumption for muscle maintenance, strength and resistance training as well as probiotics, B12 complex biotin , iron and other nutrients, To also help avoid telogen effluvium while on weight loss medications such as GLP-1 Total time spent today was 30 minutes of which greater than 50% was spent on coordinating and counseling Patient has been found to be normal with a BMI of (22). We are a board certified obesity and weight management practice Patient has trialed behavioral modification, dietary restrictions and exercise for a minimum of 6 months The most recent [place] [employer]ocrin[employer] and [employer] guidelines recommend patients who have overweight BMI or obesity BMI, who also have metabolic syndrome, prediabetes, or at risk of developing type 2 diabetes should aim for a weight loss goal of at least 10% of the baseline body weight Patient counseled regarding effects of GLP/GIP-1 agonists, and other FDA approved wgt loss meds with regards to a multifactorial approach of weight loss as mentioned above and not solely appetite suppression. We have discussed the mechanism of GLP-1's/GIP, dual incretins, appetitite suppressants I think this would be fantastic option for her given her metabolic workup and body composition We have discussed the risks and benefits and side effects including/and not limited to Sarcopenia, intestinal obstruction, constipation, nausea, lethargy, headache Discussed importance of protein consumption for muscle maintenance as well as strength and resistance training ,probiotics, B12 complex biotin , iron and other nutrients, To help avoid telogen effluvium We have discussed the lifelong requirement of nutritional supplementation And adherence to an exercise regimen as well as importance of follow-up The patient understands and agrees There is no history of medullary thyroid cancer or multiple endocrine neoplasia There is also no history of cardiovascular disease, hypertension, palpitations, or arrhythmias In the setting of potential stimulant/amphetam ine use such as phentermine We have also discussed risks and benefits, and the use of compounded medications to help offset the national shortages as well as financial implications vs trade name drugs Patient was reassured and welcomed to the practice. We discussed that we stress a hollistic medical approach with emphasis on lifestyle modification. Patient was informed that a healthy lifestyle with exercise and good eating habits can help reduce his risk of medical complications. He is explained that obesity increases his risk of diabetes, cardiovascular disease, or organ damage. We spent a lot of time discussing the relationship between food, exercise, sleep, mental health and obesity. Patient was counseled on the importance EATING local, organic food when possible. Patient was educated on clean 15 and dirty dozen. I provided information about reading books called The Food Rules by Chip Wang and Eat Fat Get Lean by Dr Stan Conner. Self education is important in the journey for weight management. Patient was offered diagnostic testing. We want to measure visceral adiposity, advanced body composition, adverse lipids, fatty acid balance, risk for heart disease and atherosclerosis, markers of inflammation and genetic susceptibility. Patient was counseled on weight management and was advised to lose weight using A. Meal Replacement Products We discussed the lifelong requirement of nutritional supplementation and adherence to an exercise regimen as well as importance of dietary follow-up Patient was educated on the replacement products called optifast. This is a good way of taking fixed amount of calories. It has been shown in studies to be ineffective weight management tool. We also recommend maintaining adequate protein intake and muscle composition, 1.5mg/kg This however has to be coupled with lifestyle intervention as well as laboratory data and EKG monitoring. It is impossible to know how a person will tolerate complete meal replacement. The side effects of meal replacement and weight loss could include syncopal attacks, dizziness, gallstones, potential cholecystectomy, possible heart attack and even . The benefits of meal replacement would be potential weight loss but no guarantees can be made. Meal replacement products are not covered by insurance. Once the patient has bought these products we cannot return them B. Lifestyle management which includes several strategies as below 1. Eat a low carbohydrate good fat good protein diet. Eliminate refined carbohydrates from the diet. Continue blood sugar and sugared beverages. Eat local organic when possible. Cook your own meals. Read food labels. None about healthy snacks. Portion control and food with low glycemic index 2. Exercise regularly. Try to get at least 6000 steps a day. Use a predominant to track activity level. Consider using apps like [employer], myfitnesspal, lose it, stick as needed for self-monitoring and weight management. Consider group exercises. Consider hiring a personal driver. Regular exercise is cespedes to sustainable health and prevents as a buffer against weight regain 3. Sleep is most important for healing. Tried to sleep at least 8 hours a night. A good quality sleep needs a sleep ritual with ideal room temperature of around 68. It might help to take a shower and have no electronics in the room and sleep in a very dark room without artificial light. Start her sleep routine and get up early in the morning and go to bed on time 4. Make a social connection. Surround yourself with positive people with positive energy. Connect with friends and family. 5. Get into the habit of meditating and mindfulness while doing everything. 6. Go outside and connect with nature. C. Prescription medications Patient was educated on the use of prescription medications for medical weight loss. This is a growing list and includes phentermine, Topamax,Qsymia, contrave, belviq and saxenda. All prescription medications could have side effects including but not limited to kidney stones, seizure disorder cardiac arrhythmias heart attack pancreatitis etc. etc.. Patient was encouraged to read the prescription insert and have coaching with their pharmacist and make an informed decision about taking medication and know that these medications are being prescribed with good intentions and we do not know how a patient would react to her medication. Sudden medications are FDA approved for weight loss and there is also off label use depending on patient's inability to afford medications in an attempt to lose weight D. Behavioral counseling was done to establish a relationship between food and an mood. Patient was provided information about local counseling and psychiatry and Dr Skelton at [facility]. We would like to cover regular topics and build on low glycemic eating exercise mindful eating, using yoga and meditation along with deep breathing and connecting with friends and family. E. MASS PAT reviewed, Patient's current medications were reviewed and opinion was given on medication that can cause weight gain and can be substituted F. Patient was assessed for risk with obesity including and not limiting to atherosclerosis heart disease stroke kidney disease, restrictive lung disease, irritable bowel syndrome and overall mortality. Risk of developing prediabetes diabetes and metabolic syndrome was discussed G. Therapeutic plan: We have decided to make therapeutic plan which would include choosing wisely on calories restricting portion getting active, tracking weight, getting good quality sleep and working on time management H. Patient will follow up in (4) weeks for weight management Of note, some information is being carried forward from prior records for informational purposes only and is being cited so that efficiency, safety and quality of the patient's care is not compromised This note was prepared using voice recognition software and direct typing Please excuse inadvertent power plant inspector or typing errors, or uncorrected word substitutions Although every attempt has been made by the provider to proofread this document, occasional misspellings and typographical errors may still be present Due to the previous pandemic, and the use of personal protective equipment (PPE) This may decrease voice recognition accuracy Inadvertent power plant inspector errors may occur 05/22/2024 Prediabetes (ICD-10 - R73.03) #Weight Management 05/22/2024 _update labs WIll continue 10-mg mounjaro- discussed maintanence dosing Every other week For now We will try for zbound, Patient is amendable to paying [id number] given the benefits of the drug Tolerating overall well. SECA scale reviewed prior, skeletal muscle mass within normal limits. discussed importance of protein consumption for muscle maintenance, strength and resistance training as well as probiotics, B12 complex biotin , iron and other nutrients, To also help avoid telogen effluvium while on weight loss medications such as GLP-1 Follow up in 6 weeks. Total time spent today was 30 minutes of which greater than 50% was spent on coordinating and counseling Patient has been found to be normal with a BMI of (22). We are a board certified obesity and weight management practice Patient has trialed behavioral modification, dietary restrictions and exercise for a minimum of 6 months The most recent [place] [employer]ocrinologists and [place] [employer] guidelines recommend patients who have overweight BMI or obesity BMI, who also have metabolic syndrome, prediabetes, or at risk of developing type 2 diabetes should aim for a weight loss goal of at least 10% of the baseline body weight Patient counseled regarding effects of GLP/GIP-1 agonists, and other FDA approved wgt loss meds with regards to a multifactorial approach of weight loss as mentioned above and not solely appetite suppression. We have discussed the mechanism of GLP-1's/GIP, dual incretins, appetitite suppressants I think this would be fantastic option for her given her metabolic workup and body composition We have discussed the risks and benefits and side effects including/and not limited to Sarcopenia, intestinal obstruction, constipation, nausea, lethargy, headache Discussed importance of protein consumption for muscle maintenance as well as strength and resistance training ,probiotics, B12 complex biotin , iron and other nutrients, To help avoid telogen effluvium We have discussed the lifelong requirement of nutritional supplementation And adherence to an exercise regimen as well as importance of follow-up The patient understands and agrees There is no history of medullary thyroid cancer or multiple endocrine neoplasia There is also no history of cardiovascular disease, hypertension, palpitations, or arrhythmias In the setting of potential stimulant/amphetam ine use such as phentermine We have also discussed risks and benefits, and the use of compounded medications to help offset the national shortages as well as financial implications vs trade name drugs Patient was reassured and welcomed to the practice. We discussed that we stress a hollistic medical approach with emphasis on lifestyle modification. Patient was informed that a healthy lifestyle with exercise and good eating habits can help reduce his risk of medical complications. He is explained that obesity increases his risk of diabetes, cardiovascular disease, or organ damage. We spent a lot of time discussing the relationship between food, exercise, sleep, mental health and obesity. Patient was counseled on the importance EATING local, organic food when possible. Patient was educated on clean 15 and dirty dozen. I provided information about reading books called The Food Rules by Chip Wang and Eat Fat Get Lean by Dr Stan Conner. Self education is important in the journey for weight management. Patient was offered diagnostic testing. We want to measure visceral adiposity, advanced body composition, adverse lipids, fatty acid balance, risk for heart disease and atherosclerosis, markers of inflammation and genetic susceptibility. Patient was counseled on weight management and was advised to lose weight using A. Meal Replacement Products We discussed the lifelong requirement of nutritional supplementation and adherence to an exercise regimen as well as importance of dietary follow-up Patient was educated on the replacement products called optifast. This is a good way of taking fixed amount of calories. It has been shown in studies to be ineffective weight management tool. We also recommend maintaining adequate protein intake and muscle composition, 1.5mg/kg This however has to be coupled with lifestyle intervention as well as laboratory data and EKG monitoring. It is impossible to know how a person will tolerate complete meal replacement. The side effects of meal replacement and weight loss could include syncopal attacks, dizziness, gallstones, potential cholecystectomy, possible heart attack and even . The benefits of meal replacement would be potential weight loss but no guarantees can be made. Meal replacement products are not covered by insurance. Once the patient has bought these products we cannot return them B. Lifestyle management which includes several strategies as below 1. Eat a low carbohydrate good fat good protein diet. Eliminate refined carbohydrates from the diet. Continue blood sugar and sugared beverages. Eat local organic when possible. Cook your own meals. Read food labels. None about healthy snacks. Portion control and food with low glycemic index 2. Exercise regularly. Try to get at least 6000 steps a day. Use a predominant to track activity level. Consider using apps like [employer], Ivaluapal, lose it, stick as needed for self-monitoring and weight management. Consider group exercises. Consider hiring a personal driver. Regular exercise is cespedes to sustainable health and prevents as a buffer against weight regain 3. Sleep is most important for healing. Tried to sleep at least 8 hours a night. A good quality sleep needs a sleep ritual with ideal room temperature of around 68. It might help to take a shower and have no electronics in the room and sleep in a very dark room without artificial light. Start her sleep routine and get up early in the morning and go to bed on time 4. Make a social connection. Surround yourself with positive people with positive energy. Connect with friends and family. 5. Get into the habit of meditating and mindfulness while doing everything. 6. Go outside and connect with nature. C. Prescription medications Patient was educated on the use of prescription medications for medical weight loss. This is a growing list and includes phentermine, Topamax,Qsymia, contrave, belviq and saxenda. All prescription medications could have side effects including but not limited to kidney stones, seizure disorder cardiac arrhythmias heart attack pancreatitis etc. etc.. Patient was encouraged to read the prescription insert and have coaching with their pharmacist and make an informed decision about taking medication and know that these medications are being prescribed with good intentions and we do not know how a patient would react to her medication. Sudden medications are FDA approved for weight loss and there is also off label use depending on patient's inability to afford medications in an attempt to lose weight D. Behavioral counseling was done to establish a relationship between food and an mood. Patient was provided information about local counseling and psychiatry and Dr Skelton at [facility]. We would like to cover regular topics and build on low glycemic eating exercise mindful eating, using yoga and meditation along with deep breathing and connecting with friends and family. E. MASS PAT reviewed, Patient's current medications were reviewed and opinion was given on medication that can cause weight gain and can be substituted F. Patient was assessed for risk with obesity including and not limiting to atherosclerosis heart disease stroke kidney disease, restrictive lung disease, irritable bowel syndrome and overall mortality. Risk of developing prediabetes diabetes and metabolic syndrome was discussed G. Therapeutic plan: We have decided to make therapeutic plan which would include choosing wisely on calories restricting portion getting active, tracking weight, getting good quality sleep and working on time management H. Patient will follow up in (4) weeks for weight management Of note, some information is being carried forward from prior records for informational purposes only and is being cited so that efficiency, safety and quality of the patient's care is not compromised This note was prepared using voice recognition software and direct typing Please excuse inadvertent power plant inspector or typing errors, or uncorrected word substitutions Although every attempt has been made by the provider to proofread this document, occasional misspellings and typographical errors may still be present Due to the previous pandemic, and the use of personal protective equipment (PPE) This may decrease voice recognition accuracy Inadvertent power plant inspector errors may occur 03/30/2024 Prediabetes (ICD-10 - R73.03) #Weight Management 03/30/2024 _update labs WIll continue 10-mg mounjaro- discussed maintanence dosing Every other week For now We will try for zbound, Patient is amendable to paying [id number] given the benefits of the drug Tolerating overall well. SECA scale reviewed prior, skeletal muscle mass within normal limits. discussed importance of protein consumption for muscle maintenance, strength and resistance training as well as probiotics, B12 complex biotin , iron and other nutrients, To also help avoid telogen effluvium while on weight loss medications such as GLP-1 Follow up in 6 weeks. Total time spent today was 30 minutes of which greater than 50% was spent on coordinating and counseling Patient has been found to be normal with a BMI of (22). We are a board certified obesity and weight management practice Patient has trialed behavioral modification, dietary restrictions and exercise for a minimum of 6 months The most recent [place] [employer] endocrinologists and [place] [employer] guidelines recommend patients who have overweight BMI or obesity BMI, who also have metabolic syndrome, prediabetes, or at risk of developing type 2 diabetes should aim for a weight loss goal of at least 10% of the baseline body weight Patient counseled regarding effects of GLP/GIP-1 agonists, and other FDA approved wgt loss meds with regards to a multifactorial approach of weight loss as mentioned above and not solely appetite suppression. We have discussed the mechanism of GLP-1's/GIP, dual incretins, appetitite suppressants I think this would be fantastic option for her given her metabolic workup and body composition We have discussed the risks and benefits and side effects including/and not limited to Sarcopenia, intestinal obstruction, constipation, nausea, lethargy, headache Discussed importance of protein consumption for muscle maintenance as well as strength and resistance training ,probiotics, B12 complex biotin , iron and other nutrients, To help avoid telogen effluvium We have discussed the lifelong requirement of nutritional supplementation And adherence to an exercise regimen as well as importance of follow-up The patient understands and agrees There is no history of medullary thyroid cancer or multiple endocrine neoplasia There is also no history of cardiovascular disease, hypertension, palpitations, or arrhythmias In the setting of potential stimulant/amphetam ine use such as phentermine We have also discussed risks and benefits, and the use of compounded medications to help offset the national shortages as well as financial implications vs trade name drugs Patient was reassured and welcomed to the practice. We discussed that we stress a hollistic medical approach with emphasis on lifestyle modification. Patient was informed that a healthy lifestyle with exercise and good eating habits can help reduce his risk of medical complications. He is explained that obesity increases his risk of diabetes, cardiovascular disease, or organ damage. We spent a lot of time discussing the relationship between food, exercise, sleep, mental health and obesity. Patient was counseled on the importance EATING local, organic food when possible. Patient was educated on clean 15 and dirty dozen. I provided information about reading books called The Food Rules by Chip Wang and Eat Fat Get Lean by Dr Stan Conner. Self education is important in the journey for weight management. Patient was offered diagnostic testing. We want to measure visceral adiposity, advanced body composition, adverse lipids, fatty acid balance, risk for heart disease and atherosclerosis, markers of inflammation and genetic susceptibility. Patient was counseled on weight management and was advised to lose weight using A. Meal Replacement Products We discussed the lifelong requirement of nutritional supplementation and adherence to an exercise regimen as well as importance of dietary follow-up Patient was educated on the replacement products called optifast. This is a good way of taking fixed amount of calories. It has been shown in studies to be ineffective weight management tool. We also recommend maintaining adequate protein intake and muscle composition, 1.5mg/kg This however has to be coupled with lifestyle intervention as well as laboratory data and EKG monitoring. It is impossible to know how a person will tolerate complete meal replacement. The side effects of meal replacement and weight loss could include syncopal attacks, dizziness, gallstones, potential cholecystectomy, possible heart attack and even . The benefits of meal replacement would be potential weight loss but no guarantees can be made. Meal replacement products are not covered by insurance. Once the patient has bought these products we cannot return them B. Lifestyle management which includes several strategies as below 1. Eat a low carbohydrate good fat good protein diet. Eliminate refined carbohydrates from the diet. Continue blood sugar and sugared beverages. Eat local organic when possible. Cook your own meals. Read food labels. None about healthy snacks. Portion control and food with low glycemic index 2. Exercise regularly. Try to get at least 6000 steps a day. Use a predominant to track activity level. Consider using apps like [employer], Ivaluapal, lose it, stick as needed for self-monitoring and weight management. Consider group exercises. Consider hiring a personal driver. Regular exercise is cespedes to sustainable health and prevents as a buffer against weight regain 3. Sleep is most important for healing. Tried to sleep at least 8 hours a night. A good quality sleep needs a sleep ritual with ideal room temperature of around 68. It might help to take a shower and have no electronics in the room and sleep in a very dark room without artificial light. Start her sleep routine and get up early in the morning and go to bed on time 4. Make a social connection. Surround yourself with positive people with positive energy. Connect with friends and family. 5. Get into the habit of meditating and mindfulness while doing everything. 6. Go outside and connect with nature. C. Prescription medications Patient was educated on the use of prescription medications for medical weight loss. This is a growing list and includes phentermine, Topamax,Qsymia, contrave, belviq and saxenda. All prescription medications could have side effects including but not limited to kidney stones, seizure disorder cardiac arrhythmias heart attack pancreatitis etc. etc.. Patient was encouraged to read the prescription insert and have coaching with their pharmacist and make an informed decision about taking medication and know that these medications are being prescribed with good intentions and we do not know how a patient would react to her medication. Sudden medications are FDA approved for weight loss and there is also off label use depending on patient's inability to afford medications in an attempt to lose weight D. Behavioral counseling was done to establish a relationship between food and an mood. Patient was provided information about local counseling and psychiatry and Dr Skelton at [facility]. We would like to cover regular topics and build on low glycemic eating exercise mindful eating, using yoga and meditation along with deep breathing and connecting with friends and family. E. MASS PAT reviewed, Patient's current medications were reviewed and opinion was given on medication that can cause weight gain and can be substituted F. Patient was assessed for risk with obesity including and not limiting to atherosclerosis heart disease stroke kidney disease, restrictive lung disease, irritable bowel syndrome and overall mortality. Risk of developing prediabetes diabetes and metabolic syndrome was discussed G. Therapeutic plan: We have decided to make therapeutic plan which would include choosing wisely on calories restricting portion getting active, tracking weight, getting good quality sleep and working on time management H. Patient will follow up in (4) weeks for weight management Of note, some information is being carried forward from prior records for informational purposes only and is being cited so that efficiency, safety and quality of the patient's care is not compromised This note was prepared using voice recognition software and direct typing Please excuse inadvertent power plant inspector or typing errors, or uncorrected word substitutions Although every attempt has been made by the provider to proofread this document, occasional misspellings and typographical errors may still be present Due to the previous pandemic, and the use of personal protective equipment (PPE) This may decrease voice recognition accuracy Inadvertent power plant inspector errors may occur 03/30/2024 Hyperinsulinemia (ICD-10 - E16.1) #Weight Management 03/30/2024 _update labs WIll continue 10-mg mounjaro- discussed maintanence dosing Every other week For now We will try for zbound, Patient is amendable to paying [id number] given the benefits of the drug Tolerating overall well. SECA scale reviewed prior, skeletal muscle mass within normal limits. discussed importance of protein consumption for muscle maintenance, strength and resistance training as well as probiotics, B12 complex biotin , iron and other nutrients, To also help avoid telogen effluvium while on weight loss medications such as GLP-1 Follow up in 6 weeks. Total time spent today was 30 minutes of which greater than 50% was spent on coordinating and counseling Patient has been found to be normal with a BMI of (22). We are a board certified obesity and weight management practice Patient has trialed behavioral modification, dietary restrictions and exercise for a minimum of 6 months The most recent [place] [employer] clinical endocrinologists and [employer] guidelines recommend patients who have overweight BMI or obesity BMI, who also have metabolic syndrome, prediabetes, or at risk of developing type 2 diabetes should aim for a weight loss goal of at least 10% of the baseline body weight Patient counseled regarding effects of GLP/GIP-1 agonists, and other FDA approved wgt loss meds with regards to a multifactorial approach of weight loss as mentioned above and not solely appetite suppression. We have discussed the mechanism of GLP-1's/GIP, dual incretins, appetitite suppressants I think this would be fantastic option for her given her metabolic workup and body composition We have discussed the risks and benefits and side effects including/and not limited to Sarcopenia, intestinal obstruction, constipation, nausea, lethargy, headache Discussed importance of protein consumption for muscle maintenance as well as strength and resistance training ,probiotics, B12 complex biotin , iron and other nutrients, To help avoid telogen effluvium We have discussed the lifelong requirement of nutritional supplementation And adherence to an exercise regimen as well as importance of follow-up The patient understands and agrees There is no history of medullary thyroid cancer or multiple endocrine neoplasia There is also no history of cardiovascular disease, hypertension, palpitations, or arrhythmias In the setting of potential stimulant/amphetam ine use such as phentermine We have also discussed risks and benefits, and the use of compounded medications to help offset the national shortages as well as financial implications vs trade name drugs Patient was reassured and welcomed to the practice. We discussed that we stress a hollistic medical approach with emphasis on lifestyle modification. Patient was informed that a healthy lifestyle with exercise and good eating habits can help reduce his risk of medical complications. He is explained that obesity increases his risk of diabetes, cardiovascular disease, or organ damage. We spent a lot of time discussing the relationship between food, exercise, sleep, mental health and obesity. Patient was counseled on the importance EATING local, organic food when possible. Patient was educated on clean 15 and dirty dozen. I provided information about reading books called The Food Rules by Chip Wang and Eat Fat Get Lean by Dr Stan Conner. Self education is important in the journey for weight management. Patient was offered diagnostic testing. We want to measure visceral adiposity, advanced body composition, adverse lipids, fatty acid balance, risk for heart disease and atherosclerosis, markers of inflammation and genetic susceptibility. Patient was counseled on weight management and was advised to lose weight using A. Meal Replacement Products We discussed the lifelong requirement of nutritional supplementation and adherence to an exercise regimen as well as importance of dietary follow-up Patient was educated on the replacement products called optifast. This is a good way of taking fixed amount of calories. It has been shown in studies to be ineffective weight management tool. We also recommend maintaining adequate protein intake and muscle composition, 1.5mg/kg This however has to be coupled with lifestyle intervention as well as laboratory data and EKG monitoring. It is impossible to know how a person will tolerate complete meal replacement. The side effects of meal replacement and weight loss could include syncopal attacks, dizziness, gallstones, potential cholecystectomy, possible heart attack and even . The benefits of meal replacement would be potential weight loss but no guarantees can be made. Meal replacement products are not covered by insurance. Once the patient has bought these products we cannot return them B. Lifestyle management which includes several strategies as below 1. Eat a low carbohydrate good fat good protein diet. Eliminate refined carbohydrates from the diet. Continue blood sugar and sugared beverages. Eat local organic when possible. Cook your own meals. Read food labels. None about healthy snacks. Portion control and food with low glycemic index 2. Exercise regularly. Try to get at least 6000 steps a day. Use a predominant to track activity level. Consider using apps like [employer], myfitnesspal, lose it, stick as needed for self-monitoring and weight management. Consider group exercises. Consider hiring a personal driver. Regular exercise is cespedes to sustainable health and prevents as a buffer against weight regain 3. Sleep is most important for healing. Tried to sleep at least 8 hours a night. A good quality sleep needs a sleep ritual with ideal room temperature of around 68. It might help to take a shower and have no electronics in the room and sleep in a very dark room without artificial light. Start her sleep routine and get up early in the morning and go to bed on time 4. Make a social connection. Surround yourself with positive people with positive energy. Connect with friends and family. 5. Get into the habit of meditating and mindfulness while doing everything. 6. Go outside and connect with nature. C. Prescription medications Patient was educated on the use of prescription medications for medical weight loss. This is a growing list and includes phentermine, Topamax,Qsymia, contrave, belviq and saxenda. All prescription medications could have side effects including but not limited to kidney stones, seizure disorder cardiac arrhythmias heart attack pancreatitis etc. etc.. Patient was encouraged to read the prescription insert and have coaching with their pharmacist and make an informed decision about taking medication and know that these medications are being prescribed with good intentions and we do not know how a patient would react to her medication. Sudden medications are FDA approved for weight loss and there is also off label use depending on patient's inability to afford medications in an attempt to lose weight D. Behavioral counseling was done to establish a relationship between food and an mood. Patient was provided information about local counseling and psychiatry and Dr Skelton at [facility]. We would like to cover regular topics and build on low glycemic eating exercise mindful eating, using yoga and meditation along with deep breathing and connecting with friends and family. E. MASS PAT reviewed, Patient's current medications were reviewed and opinion was given on medication that can cause weight gain and can be substituted F. Patient was assessed for risk with obesity including and not limiting to atherosclerosis heart disease stroke kidney disease, restrictive lung disease, irritable bowel syndrome and overall mortality. Risk of developing prediabetes diabetes and metabolic syndrome was discussed G. Therapeutic plan: We have decided to make therapeutic plan which would include choosing wisely on calories restricting portion getting active, tracking weight, getting good quality sleep and working on time management H. Patient will follow up in (4) weeks for weight management Of note, some information is being carried forward from prior records for informational purposes only and is being cited so that efficiency, safety and quality of the patient's care is not compromised This note was prepared using voice recognition software and direct typing Please excuse inadvertent power plant inspector or typing errors, or uncorrected word substitutions Although every attempt has been made by the provider to proofread this document, occasional misspellings and typographical errors may still be present Due to the previous pandemic, and the use of personal protective equipment (PPE) This may decrease voice recognition accuracy Inadvertent power plant inspector errors may occur 05/22/2024 Hyperinsulinemia (ICD-10 - E16.1) #Weight Management 05/22/2024 _update labs WIll continue 10-mg mounjaro- discussed maintanence dosing Every other week For now We will try for zbound, Patient is amendable to paying [id number] given the benefits of the drug Tolerating overall well. SECA scale reviewed prior, skeletal muscle mass within normal limits. discussed importance of protein consumption for muscle maintenance, strength and resistance training as well as probiotics, B12 complex biotin , iron and other nutrients, To also help avoid telogen effluvium while on weight loss medications such as GLP-1 Follow up in 6 weeks. Total time spent today was 30 minutes of which greater than 50% was spent on coordinating and counseling Patient has been found to be normal with a BMI of (22). We are a board certified obesity and weight management practice Patient has trialed behavioral modification, dietary restrictions and exercise for a minimum of 6 months The most recent [place] [employer] endocrinologists and [place] [employer] guidelines recommend patients who have overweight BMI or obesity BMI, who also have metabolic syndrome, prediabetes, or at risk of developing type 2 diabetes should aim for a weight loss goal of at least 10% of the baseline body weight Patient counseled regarding effects of GLP/GIP-1 agonists, and other FDA approved wgt loss meds with regards to a multifactorial approach of weight loss as mentioned above and not solely appetite suppression. We have discussed the mechanism of GLP-1's/GIP, dual incretins, appetitite suppressants I think this would be fantastic option for her given her metabolic workup and body composition We have discussed the risks and benefits and side effects including/and not limited to Sarcopenia, intestinal obstruction, constipation, nausea, lethargy, headache Discussed importance of protein consumption for muscle maintenance as well as strength and resistance training ,probiotics, B12 complex biotin , iron and other nutrients, To help avoid telogen effluvium We have discussed the lifelong requirement of nutritional supplementation And adherence to an exercise regimen as well as importance of follow-up The patient understands and agrees There is no history of medullary thyroid cancer or multiple endocrine neoplasia There is also no history of cardiovascular disease, hypertension, palpitations, or arrhythmias In the setting of potential stimulant/amphetam ine use such as phentermine We have also discussed risks and benefits, and the use of compounded medications to help offset the national shortages as well as financial implications vs trade name drugs Patient was reassured and welcomed to the practice. We discussed that we stress a hollistic medical approach with emphasis on lifestyle modification. Patient was informed that a healthy lifestyle with exercise and good eating habits can help reduce his risk of medical complications. He is explained that obesity increases his risk of diabetes, cardiovascular disease, or organ damage. We spent a lot of time discussing the relationship between food, exercise, sleep, mental health and obesity. Patient was counseled on the importance EATING local, organic food when possible. Patient was educated on clean 15 and dirty dozen. I provided information about reading books called The Food Rules by Chip Wang and Eat Fat Get Lean by Dr Stan Conner. Self education is important in the journey for weight management. Patient was offered diagnostic testing. We want to measure visceral adiposity, advanced body composition, adverse lipids, fatty acid balance, risk for heart disease and atherosclerosis, markers of inflammation and genetic susceptibility. Patient was counseled on weight management and was advised to lose weight using A. Meal Replacement Products We discussed the lifelong requirement of nutritional supplementation and adherence to an exercise regimen as well as importance of dietary follow-up Patient was educated on the replacement products called optifast. This is a good way of taking fixed amount of calories. It has been shown in studies to be ineffective weight management tool. We also recommend maintaining adequate protein intake and muscle composition, 1.5mg/kg This however has to be coupled with lifestyle intervention as well as laboratory data and EKG monitoring. It is impossible to know how a person will tolerate complete meal replacement. The side effects of meal replacement and weight loss could include syncopal attacks, dizziness, gallstones, potential cholecystectomy, possible heart attack and even . The benefits of meal replacement would be potential weight loss but no guarantees can be made. Meal replacement products are not covered by insurance. Once the patient has bought these products we cannot return them B. Lifestyle management which includes several strategies as below 1. Eat a low carbohydrate good fat good protein diet. Eliminate refined carbohydrates from the diet. Continue blood sugar and sugared beverages. Eat local organic when possible. Cook your own meals. Read food labels. None about healthy snacks. Portion control and food with low glycemic index 2. Exercise regularly. Try to get at least 6000 steps a day. Use a predominant to track activity level. Consider using apps like [employer], [employer]valuapal, lose it, stick as needed for self-monitoring and weight management. Consider group exercises. Consider hiring a personal driver. Regular exercise is cespedes to sustainable health and prevents as a buffer against weight regain 3. Sleep is most important for healing. Tried to sleep at least 8 hours a night. A good quality sleep needs a sleep ritual with ideal room temperature of around 68. It might help to take a shower and have no electronics in the room and sleep in a very dark room without artificial light. Start her sleep routine and get up early in the morning and go to bed on time 4. Make a social connection. Surround yourself with positive people with positive energy. Connect with friends and family. 5. Get into the habit of meditating and mindfulness while doing everything. 6. Go outside and connect with nature. C. Prescription medications Patient was educated on the use of prescription medications for medical weight loss. This is a growing list and includes phentermine, Topamax,Qsymia, contrave, belviq and saxenda. All prescription medications could have side effects including but not limited to kidney stones, seizure disorder cardiac arrhythmias heart attack pancreatitis etc. etc.. Patient was encouraged to read the prescription insert and have coaching with their pharmacist and make an informed decision about taking medication and know that these medications are being prescribed with good intentions and we do not know how a patient would react to her medication. Sudden medications are FDA approved for weight loss and there is also off label use depending on patient's inability to afford medications in an attempt to lose weight D. Behavioral counseling was done to establish a relationship between food and an mood. Patient was provided information about local counseling and psychiatry and Dr Skelton at [facility]. We would like to cover regular topics and build on low glycemic eating exercise mindful eating, using yoga and meditation along with deep breathing and connecting with friends and family. E. MASS PAT reviewed, Patient's current medications were reviewed and opinion was given on medication that can cause weight gain and can be substituted F. Patient was assessed for risk with obesity including and not limiting to atherosclerosis heart disease stroke kidney disease, restrictive lung disease, irritable bowel syndrome and overall mortality. Risk of developing prediabetes diabetes and metabolic syndrome was discussed G. Therapeutic plan: We have decided to make therapeutic plan which would include choosing wisely on calories restricting portion getting active, tracking weight, getting good quality sleep and working on time management H. Patient will follow up in (4) weeks for weight management Of note, some information is being carried forward from prior records for informational purposes only and is being cited so that efficiency, safety and quality of the patient's care is not compromised This note was prepared using voice recognition software and direct typing Please excuse inadvertent power plant inspector or typing errors, or uncorrected word substitutions Although every attempt has been made by the provider to proofread this document, occasional misspellings and typographical errors may still be present Due to the previous pandemic, and the use of personal protective equipment (PPE) This may decrease voice recognition accuracy Inadvertent power plant inspector errors may occur 08/07/2024 Hyperinsulinemia (ICD-10 - E16.1) #Weight Management 08/07/2024 To get updated labs after today's visit Discussed body composition scale findings down fat mass and slightly up on muscle mass Low normal muscle mass discussed proper protein and strength and resistance training WIll continue 10-mg mounjaro- discussed maintanence dosing We will try for zbound, Patient is amendable to paying [id number] given the benefits of the drug Tolerating overall well. SECA scale reviewed prior, skeletal muscle mass within normal limits. discussed importance of protein consumption for muscle maintenance, strength and resistance training as well as probiotics, B12 complex biotin , iron and other nutrients, To also help avoid telogen effluvium while on weight loss medications such as GLP-1 Total time spent today was 30 minutes of which greater than 50% was spent on coordinating and counseling Patient has been found to be normal with a BMI of (22). We are a board certified obesity and weight management practice Patient has trialed behavioral modification, dietary restrictions and exercise for a minimum of 6 months The most recent [place] [employer] clinical endocrinologists and [employer] guidelines recommend patients who have overweight BMI or obesity BMI, who also have metabolic syndrome, prediabetes, or at risk of developing type 2 diabetes should aim for a weight loss goal of at least 10% of the baseline body weight Patient counseled regarding effects of GLP/GIP-1 agonists, and other FDA approved wgt loss meds with regards to a multifactorial approach of weight loss as mentioned above and not solely appetite suppression. We have discussed the mechanism of GLP-1's/GIP, dual incretins, appetitite suppressants I think this would be fantastic option for her given her metabolic workup and body composition We have discussed the risks and benefits and side effects including/and not limited to Sarcopenia, intestinal obstruction, constipation, nausea, lethargy, headache Discussed importance of protein consumption for muscle maintenance as well as strength and resistance training ,probiotics, B12 complex biotin , iron and other nutrients, To help avoid telogen effluvium We have discussed the lifelong requirement of nutritional supplementation And adherence to an exercise regimen as well as importance of follow-up The patient understands and agrees There is no history of medullary thyroid cancer or multiple endocrine neoplasia There is also no history of cardiovascular disease, hypertension, palpitations, or arrhythmias In the setting of potential stimulant/amphetam ine use such as phentermine We have also discussed risks and benefits, and the use of compounded medications to help offset the national shortages as well as financial implications vs trade name drugs Patient was reassured and welcomed to the practice. We discussed that we stress a hollistic medical approach with emphasis on lifestyle modification. Patient was informed that a healthy lifestyle with exercise and good eating habits can help reduce his risk of medical complications. He is explained that obesity increases his risk of diabetes, cardiovascular disease, or organ damage. We spent a lot of time discussing the relationship between food, exercise, sleep, mental health and obesity. Patient was counseled on the importance EATING local, organic food when possible. Patient was educated on clean 15 and dirty dozen. I provided information about reading books called The Food Rules by Chip Wang and Eat Fat Get Lean by Dr Stan Conner. Self education is important in the journey for weight management. Patient was offered diagnostic testing. We want to measure visceral adiposity, advanced body composition, adverse lipids, fatty acid balance, risk for heart disease and atherosclerosis, markers of inflammation and genetic susceptibility. Patient was counseled on weight management and was advised to lose weight using A. Meal Replacement Products We discussed the lifelong requirement of nutritional supplementation and adherence to an exercise regimen as well as importance of dietary follow-up Patient was educated on the replacement products called optifast. This is a good way of taking fixed amount of calories. It has been shown in studies to be ineffective weight management tool. We also recommend maintaining adequate protein intake and muscle composition, 1.5mg/kg This however has to be coupled with lifestyle intervention as well as laboratory data and EKG monitoring. It is impossible to know how a person will tolerate complete meal replacement. The side effects of meal replacement and weight loss could include syncopal attacks, dizziness, gallstones, potential cholecystectomy, possible heart attack and even . The benefits of meal replacement would be potential weight loss but no guarantees can be made. Meal replacement products are not covered by insurance. Once the patient has bought these products we cannot return them B. Lifestyle management which includes several strategies as below 1. Eat a low carbohydrate good fat good protein diet. Eliminate refined carbohydrates from the diet. Continue blood sugar and sugared beverages. Eat local organic when possible. Cook your own meals. Read food labels. None about healthy snacks. Portion control and food with low glycemic index 2. Exercise regularly. Try to get at least 6000 steps a day. Use a predominant to track activity level. Consider using apps like [employer], [employer] the [employer], lose it, stick as needed for self-monitoring and weight management. Consider group exercises. Consider hiring a personal driver. Regular exercise is cespedes to sustainable health and prevents as a buffer against weight regain 3. Sleep is most important for healing. Tried to sleep at least 8 hours a night. A good quality sleep needs a sleep ritual with ideal room temperature of around 68. It might help to take a shower and have no electronics in the room and sleep in a very dark room without artificial light. Start her sleep routine and get up early in the morning and go to bed on time 4. Make a social connection. Surround yourself with positive people with positive energy. Connect with friends and family. 5. Get into the habit of meditating and mindfulness while doing everything. 6. Go outside and connect with nature. C. Prescription medications Patient was educated on the use of prescription medications for medical weight loss. This is a growing list and includes phentermine, Topamax,Qsymia, contrave, belviq and saxenda. All prescription medications could have side effects including but not limited to kidney stones, seizure disorder cardiac arrhythmias heart attack pancreatitis etc. etc.. Patient was encouraged to read the prescription insert and have coaching with their pharmacist and make an informed decision about taking medication and know that these medications are being prescribed with good intentions and we do not know how a patient would react to her medication. Sudden medications are FDA approved for weight loss and there is also off label use depending on patient's inability to afford medications in an attempt to lose weight D. Behavioral counseling was done to establish a relationship between food and an mood. Patient was provided information about local counseling and psychiatry and Dr Skelton at [facility]. We would like to cover regular topics and build on low glycemic eating exercise mindful eating, using yoga and meditation along with deep breathing and connecting with friends and family. E. MASS PAT reviewed, Patient's current medications were reviewed and opinion was given on medication that can cause weight gain and can be substituted F. Patient was assessed for risk with obesity including and not limiting to atherosclerosis heart disease stroke kidney disease, restrictive lung disease, irritable bowel syndrome and overall mortality. Risk of developing prediabetes diabetes and metabolic syndrome was discussed G. Therapeutic plan: We have decided to make therapeutic plan which would include choosing wisely on calories restricting portion getting active, tracking weight, getting good quality sleep and working on time management H. Patient will follow up in (4) weeks for weight management Of note, some information is being carried forward from prior records for informational purposes only and is being cited so that efficiency, safety and quality of the patient's care is not compromised This note was prepared using voice recognition software and direct typing Please excuse inadvertent power plant inspector or typing errors, or uncorrected word substitutions Although every attempt has been made by the provider to proofread this document, occasional misspellings and typographical errors may still be present Due to the previous pandemic, and the use of personal protective equipment (PPE) This may decrease voice recognition accuracy Inadvertent power plant inspector errors may occur 10/03/2024 Hyperinsulinemia (ICD-10 - E16.1) #Weight Management 10/03/2024 Labs reviewed Patient expresses interest in switching to us for primary care services Discussed body composition scale findings down fat mass and slightly up on muscle mass Low normal muscle mass discussed proper protein and strength and resistance training WIll continue 10-mg mounjaro- discussed maintanence dosing Every 2 weeks or so We will try for zbound, Patient is amendable to paying [id number] given the benefits of the drug Tolerating overall well. Total time spent today was 30 minutes of which greater than 50% was spent on coordinating and counseling Patient has been found to be normal with a BMI of (22). We are a board certified obesity and weight management practice Patient has trialed behavioral modification, dietary restrictions and exercise for a minimum of 6 months The most recent [place] [employer] clinical endocrinologists and [employer] guidelines recommend patients who have overweight BMI or obesity BMI, who also have metabolic syndrome, prediabetes, or at risk of developing type 2 diabetes should aim for a weight loss goal of at least 10% of the baseline body weight Patient counseled regarding effects of GLP/GIP-1 agonists, and other FDA approved wgt loss meds with regards to a multifactorial approach of weight loss as mentioned above and not solely appetite suppression. Of note, some information is being carried forward from prior records for informational purposes only and is being cited so that efficiency, safety and quality of the patient's care is not compromised This note was prepared using voice recognition software and direct typing Please excuse inadvertent power plant inspector or typing errors, or uncorrected word substitutions Although every attempt has been made by the provider to proofread this document, occasional misspellings and typographical errors may still be present Due to the previous pandemic, and the use of personal protective equipment (PPE) This may decrease voice recognition accuracy Inadvertent power plant inspector errors may occur 11/29/2024 Hyperinsulinemia (ICD-10 - E16.1) #Weight Management 11/29/2024 Labs reviewed Patient will be decreased to 2.5 mg dosing every 3 to 4 weeks for maintenance Discussed low normal muscle mass, proper protein and strength resistance training Proper caloric intake to avoid hypocalroia and muscle loss Total time spent today was 30 minutes of which greater than 50% was spent on coordinating and counseling Patient has been found to be normal with a BMI of (21). We are a board certified obesity and weight management practice Patient has trialed behavioral modification, dietary restrictions and exercise for a minimum of 6 months The most recent [place] [employer] clinical endocrinologists and [employer] guidelines recommend patients who have overweight BMI or obesity BMI, who also have metabolic syndrome, prediabetes, or at risk of developing type 2 diabetes should aim for a weight loss goal of at least 10% of the baseline body weight Patient counseled regarding effects of GLP/GIP-1 agonists, and other FDA approved wgt loss meds with regards to a multifactorial approach of weight loss as mentioned above and not solely appetite suppression. Of note, some information is being carried forward from prior records for informational purposes only and is being cited so that efficiency, safety and quality of the patient's care is not compromised This note was prepared using voice recognition software and direct typing Please excuse inadvertent power plant inspector or typing errors, or uncorrected word substitutions Although every attempt has been made by the provider to proofread this document, occasional misspellings and typographical errors may still be present Due to the previous pandemic, and the use of personal protective equipment (PPE) This may decrease voice recognition accuracy Inadvertent power plant inspector errors may occur 01/17/2025 Prediabetes (ICD-10 - R73.03) #Weight Management 01/17/2025 Will send prescription to [facility] dosing every 3 to 4 weeks for maintenance Discussed low normal muscle mass, proper protein and strength resistance training Proper caloric intake to avoid hypocalroia and muscle loss Total time spent today was 30 minutes of which greater than 50% was spent on coordinating and counseling Patient has been found to be normal with a BMI of (22). We are a board certified obesity and weight management practice Of note, some information is being carried forward from prior records for informational purposes only and is being cited so that efficiency, safety and quality of the patient's care is not compromised This note was prepared using voice recognition software and direct typing Please excuse inadvertent power plant inspector or typing errors, or uncorrected word substitutions Although every attempt has been made by the provider to proofread this document, occasional misspellings and typographical errors may still be present Due to the previous pandemic, and the use of personal protective equipment (PPE) This may decrease voice recognition accuracy Inadvertent power plant inspector errors may occur 01/17/2025 Hyperinsulinemia (ICD-10 - E16.1) #Weight Management 01/17/2025 Will send prescription to [facility] dec[facility] dosing every 3 to 4 weeks for maintenance Discussed low normal muscle mass, proper protein and strength resistance training Proper caloric intake to avoid hypocalroia and muscle loss Total time spent today was 30 minutes of which greater than 50% was spent on coordinating and counseling Patient has been found to be normal with a BMI of (22). We are a board certified obesity and weight management practice Of note, some information is being carried forward from prior records for informational purposes only and is being cited so that efficiency, safety and quality of the patient's care is not compromised This note was prepared using voice recognition software and direct typing Please excuse inadvertent power plant inspector or typing errors, or uncorrected word substitutions Although every attempt has been made by the provider to proofread this document, occasional misspellings and typographical errors may still be present Due to the previous pandemic, and the use of personal protective equipment (PPE) This may decrease voice recognition accuracy Inadvertent power plant inspector errors may occur 11/29/2024 BMI 21.0-21.9, adult (ICD-10 - Z68.21) #Weight Management 11/29/2024 Labs reviewed Patient will be decreased to 2.5 mg dosing every 3 to 4 weeks for maintenance Discussed low normal muscle mass, proper protein and strength resistance training Proper caloric intake to avoid hypocalroia and muscle loss Total time spent today was 30 minutes of which greater than 50% was spent on coordinating and counseling Patient has been found to be normal with a BMI of (21). We are a board certified obesity and weight management practice Patient has trialed behavioral modification, dietary restrictions and exercise for a minimum of 6 months The most recent [place] [employer] of clinical endocrinologists and [employer] guidelines recommend patients who have overweight BMI or obesity BMI, who also have metabolic syndrome, prediabetes, or at risk of developing type 2 diabetes should aim for a weight loss goal of at least 10% of the baseline body weight Patient counseled regarding effects of GLP/GIP-1 agonists, and other FDA approved wgt loss meds with regards to a multifactorial approach of weight loss as mentioned above and not solely appetite suppression. Of note, some information is being carried forward from prior records for informational purposes only and is being cited so that efficiency, safety and quality of the patient's care is not compromised This note was prepared using voice recognition software and direct typing Please excuse inadvertent power plant inspector or typing errors, or uncorrected word substitutions Although every attempt has been made by the provider to proofread this document, occasional misspellings and typographical errors may still be present Due to the previous pandemic, and the use of personal protective equipment (PPE) This may decrease voice recognition accuracy Inadvertent power plant inspector errors may occur 10/03/2024 BMI 22.0-22.9, adult (ICD-10 - Z68.22) #Weight Management 10/03/2024 Labs reviewed Patient expresses interest in switching to us for primary care services Discussed body composition scale findings down fat mass and slightly up on muscle mass Low normal muscle mass discussed proper protein and strength and resistance training WIll continue 10-mg mounjaro- discussed maintanence dosing Every 2 weeks or so We will try for zbound, Patient is amendable to paying [id number] given the benefits of the drug Tolerating overall well. Total time spent today was 30 minutes of which greater than 50% was spent on coordinating and counseling Patient has been found to be normal with a BMI of (22). We are a board certified obesity and weight management practice Patient has trialed behavioral modification, dietary restrictions and exercise for a minimum of 6 months The most recent [place] [employer] of clinical endocrinologists and [employer] guidelines recommend patients who have overweight BMI or obesity BMI, who also have metabolic syndrome, prediabetes, or at risk of developing type 2 diabetes should aim for a weight loss goal of at least 10% of the baseline body weight Patient counseled regarding effects of GLP/GIP-1 agonists, and other FDA approved wgt loss meds with regards to a multifactorial approach of weight loss as mentioned above and not solely appetite suppression. Of note, some information is being carried forward from prior records for informational purposes only and is being cited so that efficiency, safety and quality of the patient's care is not compromised This note was prepared using voice recognition software and direct typing Please excuse inadvertent power plant inspector or typing errors, or uncorrected word substitutions Although every attempt has been made by the provider to proofread this document, occasional misspellings and typographical errors may still be present Due to the previous pandemic, and the use of personal protective equipment (PPE) This may decrease voice recognition accuracy Inadvertent power plant inspector errors may occur 08/07/2024 BMI 22.0-22.9, adult (ICD-10 - Z68.22) #Weight Management 08/07/2024 To get updated labs after today's visit Discussed body composition scale findings down fat mass and slightly up on muscle mass Low normal muscle mass discussed proper protein and strength and resistance training WIll continue 10-mg mounjaro- discussed maintanence dosing We will try for zbound, Patient is amendable to paying [id number] given the benefits of the drug Tolerating overall well. SECA scale reviewed prior, skeletal muscle mass within normal limits. discussed importance of protein consumption for muscle maintenance, strength and resistance training as well as probiotics, B12 complex biotin , iron and other nutrients, To also help avoid telogen effluvium while on weight loss medications such as GLP-1 Total time spent today was 30 minutes of which greater than 50% was spent on coordinating and counseling Patient has been found to be normal with a BMI of (22). We are a board certified obesity and weight management practice Patient has trialed behavioral modification, dietary restrictions and exercise for a minimum of 6 months The most recent [place] [employer] of clinical endocrinologists and [employer]in[employer] guidelines recommend patients who have overweight BMI or obesity BMI, who also have metabolic syndrome, prediabetes, or at risk of developing type 2 diabetes should aim for a weight loss goal of at least 10% of the baseline body weight Patient counseled regarding effects of GLP/GIP-1 agonists, and other FDA approved wgt loss meds with regards to a multifactorial approach of weight loss as mentioned above and not solely appetite suppression. We have discussed the mechanism of GLP-1's/GIP, dual incretins, appetitite suppressants I think this would be fantastic option for her given her metabolic workup and body composition We have discussed the risks and benefits and side effects including/and not limited to Sarcopenia, intestinal obstruction, constipation, nausea, lethargy, headache Discussed importance of protein consumption for muscle maintenance as well as strength and resistance training ,probiotics, B12 complex biotin , iron and other nutrients, To help avoid telogen effluvium We have discussed the lifelong requirement of nutritional supplementation And adherence to an exercise regimen as well as importance of follow-up The patient understands and agrees There is no history of medullary thyroid cancer or multiple endocrine neoplasia There is also no history of cardiovascular disease, hypertension, palpitations, or arrhythmias In the setting of potential stimulant/amphetam ine use such as phentermine We have also discussed risks and benefits, and the use of compounded medications to help offset the national shortages as well as financial implications vs trade name drugs Patient was reassured and welcomed to the practice. We discussed that we stress a hollistic medical approach with emphasis on lifestyle modification. Patient was informed that a healthy lifestyle with exercise and good eating habits can help reduce his risk of medical complications. He is explained that obesity increases his risk of diabetes, cardiovascular disease, or organ damage. We spent a lot of time discussing the relationship between food, exercise, sleep, mental health and obesity. Patient was counseled on the importance EATING local, organic food when possible. Patient was educated on clean 15 and dirty dozen. I provided information about reading books called The Food Rules by Chip Wang and Eat Fat Get Lean by Dr Stan Conner. Self education is important in the journey for weight management. Patient was offered diagnostic testing. We want to measure visceral adiposity, advanced body composition, adverse lipids, fatty acid balance, risk for heart disease and atherosclerosis, markers of inflammation and genetic susceptibility. Patient was counseled on weight management and was advised to lose weight using A. Meal Replacement Products We discussed the lifelong requirement of nutritional supplementation and adherence to an exercise regimen as well as importance of dietary follow-up Patient was educated on the replacement products called optifast. This is a good way of taking fixed amount of calories. It has been shown in studies to be ineffective weight management tool. We also recommend maintaining adequate protein intake and muscle composition, 1.5mg/kg This however has to be coupled with lifestyle intervention as well as laboratory data and EKG monitoring. It is impossible to know how a person will tolerate complete meal replacement. The side effects of meal replacement and weight loss could include syncopal attacks, dizziness, gallstones, potential cholecystectomy, possible heart attack and even . The benefits of meal replacement would be potential weight loss but no guarantees can be made. Meal replacement products are not covered by insurance. Once the patient has bought these products we cannot return them B. Lifestyle management which includes several strategies as below 1. Eat a low carbohydrate good fat good protein diet. Eliminate refined carbohydrates from the diet. Continue blood sugar and sugared beverages. Eat local organic when possible. Cook your own meals. Read food labels. None about healthy snacks. Portion control and food with low glycemic index 2. Exercise regularly. Try to get at least 6000 steps a day. Use a predominant to track activity level. Consider using apps like [employer], [employer], lose it, stick as needed for self-monitoring and weight management. Consider group exercises. Consider hiring a personal driver. Regular exercise is cespedes to sustainable health and prevents as a buffer against weight regain 3. Sleep is most important for healing. Tried to sleep at least 8 hours a night. A good quality sleep needs a sleep ritual with ideal room temperature of around 68. It might help to take a shower and have no electronics in the room and sleep in a very dark room without artificial light. Start her sleep routine and get up early in the morning and go to bed on time 4. Make a social connection. Surround yourself with positive people with positive energy. Connect with friends and family. 5. Get into the habit of meditating and mindfulness while doing everything. 6. Go outside and connect with nature. C. Prescription medications Patient was educated on the use of prescription medications for medical weight loss. This is a growing list and includes phentermine, Topamax,Qsymia, contrave, belviq and saxenda. All prescription medications could have side effects including but not limited to kidney stones, seizure disorder cardiac arrhythmias heart attack pancreatitis etc. etc.. Patient was encouraged to read the prescription insert and have coaching with their pharmacist and make an informed decision about taking medication and know that these medications are being prescribed with good intentions and we do not know how a patient would react to her medication. Sudden medications are FDA approved for weight loss and there is also off label use depending on patient's inability to afford medications in an attempt to lose weight D. Behavioral counseling was done to establish a relationship between food and an mood. Patient was provided information about local counseling and psychiatry and Dr Skelton at [facility]. We would like to cover regular topics and build on low glycemic eating exercise mindful eating, using yoga and meditation along with deep breathing and connecting with friends and family. E. MASS PAT reviewed, Patient's current medications were reviewed and opinion was given on medication that can cause weight gain and can be substituted F. Patient was assessed for risk with obesity including and not limiting to atherosclerosis heart disease stroke kidney disease, restrictive lung disease, irritable bowel syndrome and overall mortality. Risk of developing prediabetes diabetes and metabolic syndrome was discussed G. Therapeutic plan: We have decided to make therapeutic plan which would include choosing wisely on calories restricting portion getting active, tracking weight, getting good quality sleep and working on time management H. Patient will follow up in (4) weeks for weight management Of note, some information is being carried forward from prior records for informational purposes only and is being cited so that efficiency, safety and quality of the patient's care is not compromised This note was prepared using voice recognition software and direct typing Please excuse inadvertent power plant inspector or typing errors, or uncorrected word substitutions Although every attempt has been made by the provider to proofread this document, occasional misspellings and typographical errors may still be present Due to the previous pandemic, and the use of personal protective equipment (PPE) This may decrease voice recognition accuracy Inadvertent power plant inspector errors may occur 05/22/2024 BMI 22.0-22.9, adult (ICD-10 - Z68.22) #Weight Management 05/22/2024 _update labs WIll continue 10-mg mounjaro- discussed maintanence dosing Every other week For now We will try for zbound, Patient is amendable to paying [id number] given the benefits of the drug Tolerating overall well. SECA scale reviewed prior, skeletal muscle mass within normal limits. discussed importance of protein consumption for muscle maintenance, strength and resistance training as well as probiotics, B12 complex biotin , iron and other nutrients, To also help avoid telogen effluvium while on weight loss medications such as GLP-1 Follow up in 6 weeks. Total time spent today was 30 minutes of which greater than 50% was spent on coordinating and counseling Patient has been found to be normal with a BMI of (22). We are a board certified obesity and weight management practice Patient has trialed behavioral modification, dietary restrictions and exercise for a minimum of 6 months The most recent [place] [employer]ocrin[employer] and [employer] guidelines recommend patients who have overweight BMI or obesity BMI, who also have metabolic syndrome, prediabetes, or at risk of developing type 2 diabetes should aim for a weight loss goal of at least 10% of the baseline body weight Patient counseled regarding effects of GLP/GIP-1 agonists, and other FDA approved wgt loss meds with regards to a multifactorial approach of weight loss as mentioned above and not solely appetite suppression. We have discussed the mechanism of GLP-1's/GIP, dual incretins, appetitite suppressants I think this would be fantastic option for her given her metabolic workup and body composition We have discussed the risks and benefits and side effects including/and not limited to Sarcopenia, intestinal obstruction, constipation, nausea, lethargy, headache Discussed importance of protein consumption for muscle maintenance as well as strength and resistance training ,probiotics, B12 complex biotin , iron and other nutrients, To help avoid telogen effluvium We have discussed the lifelong requirement of nutritional supplementation And adherence to an exercise regimen as well as importance of follow-up The patient understands and agrees There is no history of medullary thyroid cancer or multiple endocrine neoplasia There is also no history of cardiovascular disease, hypertension, palpitations, or arrhythmias In the setting of potential stimulant/amphetam ine use such as phentermine We have also discussed risks and benefits, and the use of compounded medications to help offset the national shortages as well as financial implications vs trade name drugs Patient was reassured and welcomed to the practice. We discussed that we stress a hollistic medical approach with emphasis on lifestyle modification. Patient was informed that a healthy lifestyle with exercise and good eating habits can help reduce his risk of medical complications. He is explained that obesity increases his risk of diabetes, cardiovascular disease, or organ damage. We spent a lot of time discussing the relationship between food, exercise, sleep, mental health and obesity. Patient was counseled on the importance EATING local, organic food when possible. Patient was educated on clean 15 and dirty dozen. I provided information about reading books called The Food Rules by Chip Wang and Eat Fat Get Lean by Dr Stan Conner. Self education is important in the journey for weight management. Patient was offered diagnostic testing. We want to measure visceral adiposity, advanced body composition, adverse lipids, fatty acid balance, risk for heart disease and atherosclerosis, markers of inflammation and genetic susceptibility. Patient was counseled on weight management and was advised to lose weight using A. Meal Replacement Products We discussed the lifelong requirement of nutritional supplementation and adherence to an exercise regimen as well as importance of dietary follow-up Patient was educated on the replacement products called optifast. This is a good way of taking fixed amount of calories. It has been shown in studies to be ineffective weight management tool. We also recommend maintaining adequate protein intake and muscle composition, 1.5mg/kg This however has to be coupled with lifestyle intervention as well as laboratory data and EKG monitoring. It is impossible to know how a person will tolerate complete meal replacement. The side effects of meal replacement and weight loss could include syncopal attacks, dizziness, gallstones, potential cholecystectomy, possible heart attack and even . The benefits of meal replacement would be potential weight loss but no guarantees can be made. Meal replacement products are not covered by insurance. Once the patient has bought these products we cannot return them B. Lifestyle management which includes several strategies as below 1. Eat a low carbohydrate good fat good protein diet. Eliminate refined carbohydrates from the diet. Continue blood sugar and sugared beverages. Eat local organic when possible. Cook your own meals. Read food labels. None about healthy snacks. Portion control and food with low glycemic index 2. Exercise regularly. Try to get at least 6000 steps a day. Use a predominant to track activity level. Consider using apps like 7 mionute excercise, mySpherical Systemspal, lose it, stick as needed for self-monitoring and weight management. Consider group exercises. Consider hiring a personal driver. Regular exercise is cespedes to sustainable health and prevents as a buffer against weight regain 3. Sleep is most important for healing. Tried to sleep at least 8 hours a night. A good quality sleep needs a sleep ritual with ideal room temperature of around 68. It might help to take a shower and have no electronics in the room and sleep in a very dark room without artificial light. Start her sleep routine and get up early in the morning and go to bed on time 4. Make a social connection. Surround yourself with positive people with positive energy. Connect with friends and family. 5. Get into the habit of meditating and mindfulness while doing everything. 6. Go outside and connect with nature. C. Prescription medications Patient was educated on the use of prescription medications for medical weight loss. This is a growing list and includes phentermine, Topamax,Qsymia, contrave, belviq and saxenda. All prescription medications could have side effects including but not limited to kidney stones, seizure disorder cardiac arrhythmias heart attack pancreatitis etc. etc.. Patient was encouraged to read the prescription insert and have coaching with their pharmacist and make an informed decision about taking medication and know that these medications are being prescribed with good intentions and we do not know how a patient would react to her medication. Sudden medications are FDA approved for weight loss and there is also off label use depending on patient's inability to afford medications in an attempt to lose weight D. Behavioral counseling was done to establish a relationship between food and an mood. Patient was provided information about local counseling and psychiatry and Dr Skelton at [facility]. We would like to cover regular topics and build on low glycemic eating exercise mindful eating, using yoga and meditation along with deep breathing and connecting with friends and family. E. MASS PAT reviewed, Patient's current medications were reviewed and opinion was given on medication that can cause weight gain and can be substituted F. Patient was assessed for risk with obesity including and not limiting to atherosclerosis heart disease stroke kidney disease, restrictive lung disease, irritable bowel syndrome and overall mortality. Risk of developing prediabetes diabetes and metabolic syndrome was discussed G. Therapeutic plan: We have decided to make therapeutic plan which would include choosing wisely on calories restricting portion getting active, tracking weight, getting good quality sleep and working on time management H. Patient will follow up in (4) weeks for weight management Of note, some information is being carried forward from prior records for informational purposes only and is being cited so that efficiency, safety and quality of the patient's care is not compromised This note was prepared using voice recognition software and direct typing Please excuse inadvertent power plant inspector or typing errors, or uncorrected word substitutions Although every attempt has been made by the provider to proofread this document, occasional misspellings and typographical errors may still be present Due to the previous pandemic, and the use of personal protective equipment (PPE) This may decrease voice recognition accuracy Inadvertent power plant inspector errors may occur 03/30/2024 BMI 22.0-22.9, adult (ICD-10 - Z68.22) #Weight Management 03/30/2024 _update labs WIll continue 10-mg mounjaro- discussed maintanence dosing Every other week For now We will try for zbound, Patient is amendable to paying [id number] given the benefits of the drug Tolerating overall well. SECA scale reviewed prior, skeletal muscle mass within normal limits. discussed importance of protein consumption for muscle maintenance, strength and resistance training as well as probiotics, B12 complex biotin , iron and other nutrients, To also help avoid telogen effluvium while on weight loss medications such as GLP-1 Follow up in 6 weeks. Total time spent today was 30 minutes of which greater than 50% was spent on coordinating and counseling Patient has been found to be normal with a BMI of (22). We are a board certified obesity and weight management practice Patient has trialed behavioral modification, dietary restrictions and exercise for a minimum of 6 months The most recent [place] [employer] of clinical endocrinologists and [employer] guidelines recommend patients who have overweight BMI or obesity BMI, who also have metabolic syndrome, prediabetes, or at risk of developing type 2 diabetes should aim for a weight loss goal of at least 10% of the baseline body weight Patient counseled regarding effects of GLP/GIP-1 agonists, and other FDA approved wgt loss meds with regards to a multifactorial approach of weight loss as mentioned above and not solely appetite suppression. We have discussed the mechanism of GLP-1's/GIP, dual incretins, appetitite suppressants I think this would be fantastic option for her given her metabolic workup and body composition We have discussed the risks and benefits and side effects including/and not limited to Sarcopenia, intestinal obstruction, constipation, nausea, lethargy, headache Discussed importance of protein consumption for muscle maintenance as well as strength and resistance training ,probiotics, B12 complex biotin , iron and other nutrients, To help avoid telogen effluvium We have discussed the lifelong requirement of nutritional supplementation And adherence to an exercise regimen as well as importance of follow-up The patient understands and agrees There is no history of medullary thyroid cancer or multiple endocrine neoplasia There is also no history of cardiovascular disease, hypertension, palpitations, or arrhythmias In the setting of potential stimulant/amphetam ine use such as phentermine We have also discussed risks and benefits, and the use of compounded medications to help offset the national shortages as well as financial implications vs trade name drugs Patient was reassured and welcomed to the practice. We discussed that we stress a hollistic medical approach with emphasis on lifestyle modification. Patient was informed that a healthy lifestyle with exercise and good eating habits can help reduce his risk of medical complications. He is explained that obesity increases his risk of diabetes, cardiovascular disease, or organ damage. We spent a lot of time discussing the relationship between food, exercise, sleep, mental health and obesity. Patient was counseled on the importance EATING local, organic food when possible. Patient was educated on clean 15 and dirty dozen. I provided information about reading books called The Food Rules by Chip Wang and Eat Fat Get Lean by Dr Stan Conner. Self education is important in the journey for weight management. Patient was offered diagnostic testing. We want to measure visceral adiposity, advanced body composition, adverse lipids, fatty acid balance, risk for heart disease and atherosclerosis, markers of inflammation and genetic susceptibility. Patient was counseled on weight management and was advised to lose weight using A. Meal Replacement Products We discussed the lifelong requirement of nutritional supplementation and adherence to an exercise regimen as well as importance of dietary follow-up Patient was educated on the replacement products called optifast. This is a good way of taking fixed amount of calories. It has been shown in studies to be ineffective weight management tool. We also recommend maintaining adequate protein intake and muscle composition, 1.5mg/kg This however has to be coupled with lifestyle intervention as well as laboratory data and EKG monitoring. It is impossible to know how a person will tolerate complete meal replacement. The side effects of meal replacement and weight loss could include syncopal attacks, dizziness, gallstones, potential cholecystectomy, possible heart attack and even . The benefits of meal replacement would be potential weight loss but no guarantees can be made. Meal replacement products are not covered by insurance. Once the patient has bought these products we cannot return them B. Lifestyle management which includes several strategies as below 1. Eat a low carbohydrate good fat good protein diet. Eliminate refined carbohydrates from the diet. Continue blood sugar and sugared beverages. Eat local organic when possible. Cook your own meals. Read food labels. None about healthy snacks. Portion control and food with low glycemic index 2. Exercise regularly. Try to get at least 6000 steps a day. Use a predominant to track activity level. Consider using apps like [employer], Ivaluapal, lose it, stick as needed for self-monitoring and weight management. Consider group exercises. Consider hiring a personal driver. Regular exercise is cespedes to sustainable health and prevents as a buffer against weight regain 3. Sleep is most important for healing. Tried to sleep at least 8 hours a night. A good quality sleep needs a sleep ritual with ideal room temperature of around 68. It might help to take a shower and have no electronics in the room and sleep in a very dark room without artificial light. Start her sleep routine and get up early in the morning and go to bed on time 4. Make a social connection. Surround yourself with positive people with positive energy. Connect with friends and family. 5. Get into the habit of meditating and mindfulness while doing everything. 6. Go outside and connect with nature. C. Prescription medications Patient was educated on the use of prescription medications for medical weight loss. This is a growing list and includes phentermine, Topamax,Qsymia, contrave, belviq and saxenda. All prescription medications could have side effects including but not limited to kidney stones, seizure disorder cardiac arrhythmias heart attack pancreatitis etc. etc.. Patient was encouraged to read the prescription insert and have coaching with their pharmacist and make an informed decision about taking medication and know that these medications are being prescribed with good intentions and we do not know how a patient would react to her medication. Sudden medications are FDA approved for weight loss and there is also off label use depending on patient's inability to afford medications in an attempt to lose weight D. Behavioral counseling was done to establish a relationship between food and an mood. Patient was provided information about local counseling and psychiatry and Dr Skelton at [facility]. We would like to cover regular topics and build on low glycemic eating exercise mindful eating, using yoga and meditation along with deep breathing and connecting with friends and family. E. MASS PAT reviewed, Patient's current medications were reviewed and opinion was given on medication that can cause weight gain and can be substituted F. Patient was assessed for risk with obesity including and not limiting to atherosclerosis heart disease stroke kidney disease, restrictive lung disease, irritable bowel syndrome and overall mortality. Risk of developing prediabetes diabetes and metabolic syndrome was discussed G. Therapeutic plan: We have decided to make therapeutic plan which would include choosing wisely on calories restricting portion getting active, tracking weight, getting good quality sleep and working on time management H. Patient will follow up in (4) weeks for weight management Of note, some information is being carried forward from prior records for informational purposes only and is being cited so that efficiency, safety and quality of the patient's care is not compromised This note was prepared using voice recognition software and direct typing Please excuse inadvertent power plant inspector or typing errors, or uncorrected word substitutions Although every attempt has been made by the provider to proofread this document, occasional misspellings and typographical errors may still be present Due to the previous pandemic, and the use of personal protective equipment (PPE) This may decrease voice recognition accuracy Inadvertent power plant inspector errors may occur PLAN OF TREATMENT Pending Test Test Name Order Date HEMOGLOBIN A1C 08/21/2022 TSH 08/21/2022 Insulin Level 08/21/2022 LIPID PANEL, STANDARD 02/15/2024 COMPREHENSIVE METABOLIC PANEL 02/15/2024 CBC (INCLUDES DIFF/PLT) 02/15/2024 URINALYSIS, COMPLETE 02/15/2024 HEMOGLOBIN A1c 02/15/2024 TSH 02/15/2024 VITAMIN D,25-OH,TOTAL,IA 02/15/2024 Next Appt Details Provider Name:AARTI LEE, 03/14/2025 08:30:00 AM, [address] [facility], [facility], [place], [address], Insurance Providers Payer Name Payer Address Payer Phone Subscriber Number Group Number Insured Name Patient Relationship to Insured Coverage Start Date Coverage End Date [facility] [address] [place] [address] [id number] Yenny John Self - patient is the insured 3 MEDICATIONS ADMINISTERED Medication Instructions Date of Administration Dosage Notes MICC B12 INJECTION 01/04/2023 MEDICAL (GENERAL) HISTORY Medical History History ICD Code Arthritis weight gain Surgical History Surgery Date(Month/Year) stent kidney stone 02/21/2019 section x2 09/18/03-09/26/1998
--- OUTSIDE RECORDS SUMMARY | 2025-03-05 08:28 | XMS_ITS ---
Author Organization [facility] Address [address] [place] [id number] Care Team Providers Care Exchange Operator Name Role Phone AARTI LEE Unavailable [phone] ALLERGIES Allergen (clinical drug ingredient) Drug/Non Drug Allergy documented on EMR Reaction Allergy Type Onset Date Status Penicillin stomach upset Drug Allergy Ac tive REASON FOR VISIT pt seen in office for wt mgt f/u visit with [facility] MEDICATIONS Medication SIG (Take, Route, Frequency, Duration) Notes Start Date End Date Status CeleBREX 200 MG 1 capsule with food Orally Once a day Not-Taking Omeprazole 20 MG 1 capsule 30 minutes before morning meal Orally Once a day Active Ondansetron 4 MG 1 tablet on the tongue and allow to dissolve prn nausea/vomiting Orally three times a day for 10 days Active Mounjaro 12.5 MG/0.5ML 12.5mg Subcutaneous weekly for 30 days every other week Not-Taking Zepbound 10 MG/0.5ML 10mg Subcutaneous weekly for 30 days 02/15/2024 Not-Taking Humira Active Hydroxychloroquine Sulfate 100 MG as directed Orally Active Mounjaro 10 MG/0.5ML 10mg Subcutaneous weekly for 30 days Active Zepbound 2.5 MG/0.5ML inject 2.5mg Subcutaneous weekly for 30 days 11/29/2024 Active SOCIAL HISTORY Tobacco Use: Social History Observation Description Date Details (start date - stop date) Current Smoker NA - NA Sex Assigned At : Social History Observation Description Sex Assigned At Unknown Tobacco Use/Smoking Question Answer Notes Are you a current smoker Section Notes: started smoing at the age of 15-16 about 1 pckt a day and quit in 2011 started smoking again 2020 smoking about 1 pck a day VITAL SIGNS Blood pressure systolic 100 mm Hg 11/29/19 25 Blood pressure diastolic 64 mm Hg 025 Heart Rate 93 /min 11/29/2024 Height 65 in 11/29/2024 Weight 130 lbs 11/29/2024 BMI 21.63 kg/m2 11/29/2024 Oximetry 98 % 11/29/2024 Encounters Encounter Location Date Provider Diagnosis [facility] [address] [facility] [address] [place] [address] 11/29/2024 AARTI LEE Rheumatoid arthritis with positive rheumatoid factor, involving unspecified site M05.9 ; Prediabetes R73.03 ; Hyperinsulinemia E16.1 and BMI 21.0-21.9, adult Z68.21 ASSESSMENTS Encounter Date Diagnosis Assessment Notes Treatment Notes Treatment Clinical Notes Section Notes 11/29/2024 Rheumatoid arthritis with positive rheumatoid factor, [...] minimum of 6 months The most recent [place] [employer] endocrinologists and [place] [employer] guidelines recommend patients who [...] software and direct typing Please excuse inadvertent it assistant or typing errors, or uncorrected word substitutions Although every attempt has been made by the provider to proofread this document, occasional misspellings and typographical errors may still be present Due to the previous pandemic, and the use of personal protective equipment (PPE) This may decrease voice recognition accuracy Inadvertent it assistant errors may occur 11/29/2024 Prediabetes (ICD-10 - [...] minimum of 6 months The most recent [place] [employer] endocrinologists and [place] [employer] guidelines recommend patients who [...] software and direct typing Please excuse inadvertent it assistant or typing errors, or uncorrected word substitutions Although every attempt has been made by the provider to proofread this document, occasional misspellings and typographical errors may still be present Due to the previous pandemic, and the use of personal protective equipment (PPE) This may decrease voice recognition accuracy Inadvertent it assistant errors may occur 11/29/2024 Hyperinsulinemia (ICD-10 - [...] minimum of 6 months The most recent [place] [employer] of clinical endocrinologists and [place] [employer] end[employer]in[employer] guidelines recommend patients who [...] software and direct typing Please excuse inadvertent it assistant or typing errors, or uncorrected word substitutions Although every attempt has been made by the provider to proofread this document, occasional misspellings and typographical errors may still be present Due to the previous pandemic, and the use of personal protective equipment (PPE) This may decrease voice recognition accuracy Inadvertent it assistant errors may occur 11/29/2024 BMI 21.0-21.9, adult [...] minimum of 6 months The most recent [place] [employer] clinical endocrinologists and [place] [employer] endocrin[employer] guidelines recommend patients who [...] software and direct typing Please excuse inadvertent it assistant or typing errors, or uncorrected word substitutions Although every attempt has been made by the provider to proofread this document, occasional misspellings and typographical errors may still be present Due to the previous pandemic, and the use of personal protective equipment (PPE) This may decrease voice recognition accuracy Inadvertent it assistant errors may occur PLAN OF TREATMENT Medication Medication Name Sig Start Date Stop Date Notes Ondansetron 4 MG 1 tablet on the tong ue and allow to dissolve prn nausea/vomiting Orally three times a day for 10 days Zepbound 2.5 MG/0.5ML inject 2.5mg Subcu taneous weekly for 30 days 11/29/2024 Next Appt Details Provider Name:AARTI LEE, 03/14/2025 08:30:00 AM, [address] [place] [address], [facility] [address], [place], [address], Progress Notes * Yenny JOHNDOB:1975 (49 yo F)Acc No.[id number]:11/29/2024 Patient:??Yenny JOHN Provider:??AARTI LEE NP :1975?Age:49 Y?Sex:Fe male Date:11/29/2024 Address:[address] [place], [place] [id number] Subjective: * Chief Complaints: * ?1. pt seen in office f or wt mgt f/u visit with [facility]. * HPI: ?Constitutional:? Patient here today for a weight management f/u visit ?Patient seen and examined. ? Full past medical history, social history, family history, ?allergies and current medications were reviewed and updated. ?Body composition analysis reviewed today ?#Weight Management ?11/29/2024 ?Patient is inquiring today about Sadie direct ?She has been paying $550 a month for dual incretin Mounjaro ?She does not carry type 2 diabetes diagnosis ?We discussed Zepbound transition plan ?Given her weight and PI and tremendous weight loss ?We discussed that low-dose every 3-week dosing model would be appropriate for her ? at 2.5 mg and she is in agreement ?Updated labs were reviewed ?[facility] scan reviewed ?Encouraged strength training Improper protein consumption ?Muscle mass is on the lower end of normal ?Denies overt abd pain or diarrhea, and otherwise, tolerating overall well. ?Injection Day - usually takes on Wednesday. every other week ?Patient enjoys anti-inflammatory effects of this drug and ? says her rheumatoid arthritis is much better controlled with ?significantly less overall stiffness and joint pain ?She no longer takes Hydroxychloroquine or Celebrex as well as Humira ?11/29/2024, Weight 130lbs , BMI 22 ?10/03/2024, Weight 128lbs, BMI 21 (-1lb) ?08/07/2024, Weight 129lbs, BMI 21 ?05/22/2024, Weight 129lbs , BMI 21 ?02/15/2024, Weight 131lbs , BMI 22 ?12/16/2023, Weight 132lbs , BMI 22, (-3lbs) ?10/21/2023: 135 lbs, BMI 22 (-5 lbs) ?09/02/2023: Weight 140, BMI 24 (-5lbs) ?07/15/2023: Weight 145, BMI 24, (-7lbs) ?06/03/2023: Weight 152, BMI 25 (-7lb) ?04/21/2023: Weight 159lbs, BMI 26 (-8lbs) ?03/10/2023: Weight 167lbs, BMI 27.8 (-15lbs) ?01/04/2023: Weight 182lbs, BMI 30 (-6lbs) ?11/30/2021: Weight 188lbs, BMI 31 (-11lbs) ?10/19/2022: Weight 199lbs, BMI (-6lbs) ?09/21/2022: Weight 205lb, BMI 34 (-14lbs) ?08/21/2022: Weight 219lbs, BMI 36 ? Clark Morrell PCP ([facility]). 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 ?Metabolic workup: ?Comprehensive labs July 2024 ?UA unremarkable ?Hemoglobin A1c of 4.9 ?Renal function electrolytes and LFTs are stable ?CBC stable ?Total cholesterol 145, triglycerides 136, HDL 63, LDL 55 ?Vitamin D 33 ?TSH 0.92 ?Diet: grab and go, poor, not portion controlling/calorie counting ?Exercise: Currently not tracking steps daily. ?Current smoker 1/2 PPD, Tobacco ?no THC. ?ETOH use: 1-2 drinks socially weekly. * ROS:?All Other Systems:?Review of Systems (ROS)??All others negative except those mentioned in HPI.? * Medical History:??Arthritis, Weight gain. * Surgical History:??stent kid liya stone 02/21/2019, section x2 09/18/03-09/26/1998. * Hospitalization/Major Diagno stic Procedure:??Denies Past Hospitalization. * Family History:??Father: ali ve.??Mother: alive.??Daughter(s): diagnosed with Unspecified heart disease.??1 sister(s) . 2 son(s) , 1 daughter(s) - healthy. .?? sister type 1 diabetes parent healthy. * Social History:?Tobacco Use:??Tobacco Use/Smoking??Are you a??current smoker.?started smoing at the age of 15-16 about 1 pckt a day and quit in 2011 started smoking again 2020 smoking about 1 pck a day. * Medications:??Taking Ondanse maria de jesus 4 MG Tablet Disintegrating 1 tablet on the tongue and allow to dissolve prn nausea/vomiting Orally three times a day , Taking Mounjaro 10 MG/0.5ML Solution Pen-injector 10mg Subcutaneous weekly , Taking Humira , Taking Hydroxychloroquine Sulfate 100 MG Tablet as directed Orally , Taking Omeprazole 20 MG Capsule Delayed Release 1 capsule 30 minutes before morning meal Orally Once a day , Not-Taking Mounjaro 12.5 MG/0.5ML Solution Pen-injector 12.5mg Subcutaneous weekly , Notes to Pharmacist: every other week, Not-Taking CeleBREX 200 MG Capsule 1 capsule with food Orally Once a day , Not-Taking Zepbound 10 MG/0.5ML Solution Auto- injector 10mg Subcutaneous weekly , Medication List reviewed and reconciled with the patient * Allergies:??Penicillin: stom ach upset. Objective: * Vitals:??HR:93/min, BP:100/6 4mm Hg, Wt:130lbs, BMI:21.63Index, Ht: 65 in, Oxygen sat %:98%. * Examination: ?General Examination: ?GENERAL APPEARANCE:??in no acute distress, well developed, well nourished.??HEAD:??normocephalic, atraumatic.??EYES:??pupils equal, round, reactive to light and accommodation.??EARS:??normal.??ORAL CAVITY:??mucosa moist.??THROAT:??clear.??NECK/THYROID:??neck supple, full range of motion, no cervical lymphadenopathy.??SKIN:??no suspicious lesions, warm and dry.??HEART:??no murmurs, regular rate and rhythm, S1, S2 normal.??LUNGS:??clear to auscultation bilaterally.??ABDOMEN:??normal, bowel sounds present, soft, nontender, nondistended.??EXTREMITIES:??no clubbing, cyanosis, or edema.??NEUROLOGIC:??nonfocal, motor strength normal upper and lower extremities, sensory exam intact.? Assessment: * Assessment: 1.??Rheumatoid arthritis wit h positive rheumatoid factor, involving unspecified site - M05.9??2.??Prediabetes - R73.03??3.??Hyperinsulinemia - E16.1??4.??BMI 21.0- 21.9, adult - Z68.21?? #Weight Management 11/29/2024 Labs reviewed Patient will [...] minimum of 6 months The most recent [place] [employer] of clinical endocrinologists and [place] [employer] endocrin[employer] guidelines recommend patients who [...] software and direct typing Please excuse inadvertent it assistant or typing errors, or uncorrected word substitutions Although every attempt has been made by the provider to proofread this document, occasional misspellings and typographical errors may still be present Due to the previous pandemic, and the use of personal protective equipment (PPE) This may decrease voice recognition accuracy Inadvertent it assistant errors may occur. Plan: * Treatment: * Images: Billing Information: * Visit Code:?? 68752 Office Visit, Est Pt., Level 4. * Procedure Codes:?? * Sign off status: Completed true * Provider:??AARTI LEE NP Date:??06/2025 History and Physical Notes * HPI (History of Present Illness) Category Sub-Category Detail Notes Category Not es Constitutional Patient here today for a weight management f/u visit Patient seen and examined. Full past medical history, social history, family history, allergies and current medications were reviewed and updated. Body composition analysis reviewed today #Weight Management 11/29/2024 Patient is inquiring today about Sadie direct She has been paying $550 a month for dual incretin Mounjaro She does not carry type 2 diabetes diagnosis We discussed Zepbound transition plan Given her weight and PI and tremendous weight loss We discussed that low-dose every 3-week dosing model would be appropriate for her at 2.5 mg and she is in agreement Updated labs were reviewed [facility] scan reviewed Encouraged strength training Improper protein consumption Muscle mass is on the lower end of normal Denies overt abd pain or diarrhea, and otherwise, tolerating overall well. Injection Day - usually takes on Wednesday. every other week Patient enjoys anti-inflammatory effects of this drug and says her rheumatoid arthritis is much better controlled with significantly less overall stiffness and joint pain She no longer takes Hydroxychloroquine or Celebrex as well as Humira 11/29/2024, Weight 130lbs , BMI 22 10/03/2024, Weight 128lbs, BMI 21 (-1lb) 08/07/2024, Weight 129lbs, BMI 21 05/22/2024, Weight 129lbs , BMI 21 02/15/2024, Weight 131lbs , BMI 22 12/16/2023, Weight 132lbs , BMI 22, (-3lbs) 10/21/2023: 135 lbs, BMI 22 (-5 lbs) 09/02/2023: Weight 140, BMI 24 (-5lbs) 07/15/2023: Weight 145, BMI 24, (-7lbs) 06/03/2023: Weight 152, BMI 25 (-7lb) 04/21/2023: Weight 159lbs, BMI 26 (-8lbs) 03/10/2023: Weight 167lbs, BMI 27.8 (-15lbs) 01/04/2023: Weight 182lbs, BMI 30 (-6lbs) 11/30/2021: Weight 188lbs, BMI 31 (-11lbs) 10/19/2022: Weight 199lbs, BMI (-6lbs) 09/21/2022: Weight 205lb, BMI 34 (-14lbs) 08/21/2022: Weight 219lbs, BMI 36 Clark Morrell PCP ([facility]). 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 Metabolic workup: Comprehensive labs July 2024 UA unremarkable Hemoglobin A1c of 4.9 Renal function electrolytes and LFTs are stable CBC stable Total cholesterol 145, triglycerides 136, HDL 63, LDL 55 Vitamin D 33 TSH 0.92 Diet: grab and go, poor, not portion controlling/calorie counting Exercise: Currently not tracking steps daily. Current smoker 1/2 PPD, Tobacco no THC. ETOH use: 1-2 drinks socially weekly Examination Category Sub-Category Detail Notes Category Not es General Examination GENERAL APPEARANCE: in no ac wong distress, well developed, well nourished HEAD: normocephalic, atrau matic EYES: pupils equal, round, reactive to light and accommodation EARS: normal THROAT: clear NECK/THYROID: neck supple, full ra nge of motion, no cervical lymphadenopathy HEART: no murmurs, regular rate and rhythm, S1, S2 normal LUNGS: clear to auscultatio n bilaterally ABDOMEN: normal, bowel sounds present, soft, nontender, nondistended NEUROLOGIC: nonfocal, motor stre ngth normal upper and lower extremities, sensory exam intact SKIN: no suspicious lesion s, warm and dry EXTREMITIES: no clubbing, cyanosi s, or edema ORAL CAVITY: mucosa moist
--- OUTSIDE RECORDS SUMMARY | 2025-03-05 08:28 | XMS_ITS ---
Author Organization [facility] Address [address] [place] [id number] Care Team Providers Care Sectional Belt Mold Assembler Name Role Phone AARTI LEE Unavailable [phone] ALLERGIES Allergen (clinical drug ingredient) Drug/Non Drug Allergy documented on EMR Reaction Allergy Type Onset Date Status Penicillin stomach upset Drug Allergy Ac tive REASON FOR VISIT pt here for wt mgt seca done MEDICATIONS Medication SIG (Take, Route, Frequency, Duration) Notes Start Date End Date Status Mounjaro 12.5 MG/0.5ML 12.5mg Subcutaneous weekly for 30 days every other week Not-Taking Zepbound 2.5 MG/0.5ML inject 2.5mg Subcutaneous weekly for 30 days 11/29/2024 Not-Taking CeleBREX 200 MG 1 capsule with food Orally Once a day Not-Taking Ondansetron 4 MG 1 tablet on the tongue and allow to dissolve prn nausea/vomiting Orally twice day for 30 days Active Zepbound 10 MG/0.5ML 10mg Subcutaneous weekly for 30 days 02/15/2024 Not-Taking Omeprazole 20 MG 1 capsule 30 minutes before morning meal Orally Once a day Active Hydroxychloroquine Sulfate 100 MG as directed Orally Active Humira Active Mounjaro 10 MG/0.5ML 10mg Subcutaneous weekly for 30 days Active SOCIAL HISTORY Tobacco Use: Social History [...] a day VITAL SIGNS Blood pressure systolic 108 mm Hg 01/17/20 25 Blood pressure diastolic 76 mm Hg 025 Heart Rate 98 /min 01/17/2025 Height 65 in 01/17/2025 Weight 133 lbs 01/17/2025 BMI 22.13 kg/m2 01/17/2025 Oximetry 99 % 01/17/2025 Encounters Encounter Location Date Provider Diagnosis [facility] [address] [facility] [address] [facility] [address] [place] [address] 01/17/2025 AARTI LEE Rheumatoid arthritis with positive rheumatoid factor, involving unspecified site M05.9 ; BMI 22.0-22.9, adult Z68.22 ; Prediabetes R73.03 and Hyperinsulinemia E16.1 ASSESSMENTS Encounter Date Diagnosis Assessment Notes Treatment Notes Treatment Clinical Notes Section Notes 01/17/2025 Rheumatoid arthritis with positive rheumatoid factor, [...] software and direct typing Please excuse inadvertent high risk case manager or typing errors, or uncorrected word substitutions Although every attempt has been made by the provider to proofread this document, occasional misspellings and typographical errors may still be present Due to the previous pandemic, and the use of personal protective equipment (PPE) This may decrease voice recognition accuracy Inadvertent high risk case manager errors may occur 01/17/2025 BMI 22.0-22.9, adult [...] software and direct typing Please excuse inadvertent high risk case manager or typing errors, or uncorrected word substitutions Although every attempt has been made by the provider to proofread this document, occasional misspellings and typographical errors may still be present Due to the previous pandemic, and the use of personal protective equipment (PPE) This may decrease voice recognition accuracy Inadvertent high risk case manager errors may occur 01/17/2025 Prediabetes (ICD-10 - [...] software and direct typing Please excuse inadvertent high risk case manager or typing errors, or uncorrected word substitutions Although every attempt has been made by the provider to proofread this document, occasional misspellings and typographical errors may still be present Due to the previous pandemic, and the use of personal protective equipment (PPE) This may decrease voice recognition accuracy Inadvertent high risk case manager errors may occur 01/17/2025 Hyperinsulinemia (ICD-10 - [...] software and direct typing Please excuse inadvertent high risk case manager or typing errors, or uncorrected word substitutions Although every attempt has been made by the provider to proofread this document, occasional misspellings and typographical errors may still be present Due to the previous pandemic, and the use of personal protective equipment (PPE) This may decrease voice recognition accuracy Inadvertent high risk case manager errors may occur PLAN OF TREATMENT Medication Medication Name Sig Start Date Stop Date Notes Ondansetron 4 MG 1 tablet on the tong ue and allow to dissolve prn nausea/vomiting Orally twice day for 30 days Next Appt Details Provider Name:AARTI LEE, 03/14/2025 08:30:00 AM, [address] [place] [address], [facility] [address], [place], [address], Progress Notes * Yenny JOHNDOB:1975 (49 yo F)Acc No.[id number]:01/17/2025 Patient:??Yenny JOHN Provider:??AARTI LEE NP :1975?Age:49 Y?Sex:Fe male Date:01/17/2025 Address:[address] [place], [place] [id number] Subjective: * Chief Complaints: * ?1. Pt here for wt mgt seca done. * HPI: ?Constitutional:? Patient here today for a weight management f/u visit ?Patient seen and examined. ? Full past medical history, social history, family history, ?allergies and current medications were reviewed and updated. ?Body composition analysis reviewed today ?#Weight Management ?01/17/2025 ?Inquiring about Sadie direct ?We discussed Zepbound transition plan ?Given her weight and PI and tremendous weight loss ?We discussed that low-dose every 3-week dosing model would be appropriate for her ?Encouraged strength training Improper protein consumption ?Muscle [...] Hydroxychloroquine or Celebrex as well as Humira ?Diet: grab and go, poor, not portion controlling/calorie counting ?Exercise: Currently not tracking steps daily. ?Current smoker 1/2 PPD, Tobacco ?no THC. ?ETOH use: 1-2 drinks socially weekly ?01/17/2025, Weight 133lbs , BMI 22 ?11/29/2024, Weight 130lbs , BMI 22 ?10/03/2024, [...] 219lbs, BMI 36 ? Clark Morrell PCP ([facility]). ?Patient works as manager property/apt complex in [place] ?Highest weight: 222 lbs ?Lowest weight: 148 lbs ?Goal weight: 165 or so lbs ?SARA screening, refused. ?Metabolic workup: ?Comprehensive labs July 2024 ?UA unremarkable ?Hemoglobin A1c of 4.9 ?Renal function electrolytes and LFTs are stable ?CBC stable ?Total cholesterol 145, triglycerides 136, HDL 63, LDL 55 ?Vitamin D 33 ?TSH 0.92. * ROS:?All Other Systems:?Review of Systems (ROS)??All [...] meal Orally Once a day , Not-Taking Zepbound 2.5 MG/0.5ML Solution inject 2.5mg Subcutaneous weekly , Not-Taking Mounjaro 12.5 MG/0.5ML Solution Pen-injector 12.5mg Subcutaneous weekly , Notes to Pharmacist: every other week, Not-Taking CeleBREX 200 MG Capsule 1 capsule with food Orally Once a day , Not-Taking Zepbound 10 MG/0.5ML Solution Auto- injector 10mg Subcutaneous weekly , Medication List reviewed and reconciled with the patient * Allergies:??Penicillin: stom ach upset. Objective: * Vitals:??HR:98/min, BP:108/7 6mm Hg, Wt:133lbs, BMI:22.13Index, Ht: 65 in, Oxygen sat %:99%. * Examination: ?General Examination: ?GENERAL APPEARANCE:??in no [...] positive rheumatoid factor, involving unspecified site - M05.9??2.??BMI 22.0-22.9, adult - Z68.22??3.??Prediabetes - R73.03??4.??Hyperinsulinemia - E16.1?? #Weight Management 01/17/2025 Will send prescription to [...] software and direct typing Please excuse inadvertent high risk case manager or typing errors, or uncorrected word substitutions Although every attempt has been made by the provider to proofread this document, occasional misspellings and typographical errors may still be present Due to the previous pandemic, and the use of personal protective equipment (PPE) This may decrease voice recognition accuracy Inadvertent high risk case manager errors may occur. Plan: * Treatment: * Procedure Codes:??14528 P/M DOCTOR OF OSTEOPATHY, INDIV 15 MIN * Images: Billing Information: * Visit Code:?? 52171 Office Visit, Est Pt., Level 4. Modifiers: 25, SA * Procedure Codes:?? 95546 P/M DOCTOR OF OSTEOPATHY, INDIV 15 MIN. * Sign off status: Completed true * Provider:??AARTI LEE NP Date:??12/24 History and Physical Notes * HPI (History of Present Illness) Category Sub-Category Detail Notes Category Not es Constitutional Patient here today for a weight management f/u visit Patient seen and examined. Full past medical history, social history, family history, allergies and current medications were reviewed and updated. Body composition analysis reviewed today #Weight Management 01/17/2025 Inquiring about Sadie direct We discussed Zepbound transition plan Given her weight and PI and tremendous weight loss We discussed that low-dose every 3-week dosing model would be appropriate for her Encouraged strength training Improper protein consumption Muscle [...] Hydroxychloroquine or Celebrex as well as Humira Diet: grab and go, poor, not portion controlling/calorie counting Exercise: Currently not tracking steps daily. Current smoker 1/2 PPD, Tobacco no THC. ETOH use: 1-2 drinks socially weekly 01/17/2025, Weight 133lbs , BMI 22 11/29/2024, Weight 130lbs , BMI 22 10/03/2024, [...] Weight 219lbs, BMI 36 Clark Morrell PCP ([facility]). 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 Metabolic workup: Comprehensive labs July 2024 UA unremarkable Hemoglobin A1c of 4.9 Renal function electrolytes and LFTs are stable CBC stable Total cholesterol 145, triglycerides 136, HDL 63, LDL 55 Vitamin D 33 TSH 0.92 Examination Category Sub-Category Detail Notes Category Not [...]
--- OUTSIDE RECORDS SUMMARY | 2025-03-05 08:28 | XMS_ITS ---
Author Organization [facility] Address [address] [place] [address] Care Team Providers Care Information Technology Advisor Name Role Phone JESUS AARTI Unavailable [phone] REASON FOR VISIT rx MEDICATIONS Medication SIG (Take, Route, Frequency, Duration) Notes Start Date End Date Status zepbound 10mg inject 10mg Subcutan eous weekly for 30 days 01/17/2025 Active Encounters Encounter Location Date Provider Diagnosis [facility] [address] [place] [phone] 01/17/2025 AARTI LEE PLAN OF TREATMENT Medication Medication Name Sig Start Date Stop Date Notes zepbound 10mg inject 10mg Subcutan eous weekly for 30 days 01/17/2025 Next Appt Details Provider Name:AARTI LEE, 03/14/2025 08:30:00 AM, [address] [place] [address], [phone], Progress Notes * Yenny JOHNDOB:1975 (49 yo F)Acc No.[id number]:01/17/2025 Patient:??Jorge JOHNey :1975?Age:49 Y?Sex:Fe male Address:[address] [place] [address] * Refills?? Start zepbound solution, 10mg, Subcutaneous, 4 Unspecified, inject 10mg, weekly, 30 days, Refills=1 * true * Date:??
== END 2025-03-05 08:07 | disposition home or self-care (01) ==
LOC: HO.MAMMO 08:06
PROVIDERS: PCP Internal Medicine; Visit Provider Internal Medicine
DX: Z12.31 Encounter for screening mammogram for malignant neoplasm of breast (principal)
CPT/HCPCS: 77063; 77067

== ENCOUNTER → 2025-03-05 08:15 | Outpatient (BNV) | payer OTHER, SELFPAY | PROVIDERS: PCP Internal Medicine; Visit Provider Internal Medicine | DX: Z12.31 Encounter for screening mammogram for malignant neoplasm of breast (principal) | CPT/HCPCS: 77063; 77067 ==